=== PATIENT | female | born 1970 | race Caucasian/White ===

== ENCOUNTER 2020-08-31 18:52 | Emergency (ER) | payer OTHER, SELFPAY ==
[2020-08-31 19:13] LABS: COVID-19 Test Positive (Negative)
== END 2020-08-31 21:27 | disposition left against medical advice (07) ==
PROVIDERS: Emergency Provider Emergency Medicine
DX: U07.1 COVID-19 (principal)
CPT/HCPCS: 36415; 87635; 99283

== ENCOUNTER 2022-12-15 17:53 | Emergency (ER) | payer OTHER, SELFPAY ==
--- NOTE | ~2022-12-15 | US_ITS ---
EXAMINATION: US VENOUS ULTRASOUND WITH DOPPLER LOWER EXTREMITY, LEFT CLINICAL INFORMATION: Left calf pain COMPARISON: None available. TECHNIQUE: Ultrasound of the deep veins is performed from the hip to the calf with compression sonography and color and pulse Doppler assessment. Spectral analysis with color-flow imaging is performed. FINDINGS: There is normal venous compression and respiratory variation and augmented flow. The visualized common femoral vein, superficial femoral vein, profunda femoral vein, popliteal vein, and the trifurcation region shows no evidence of deep venous thrombosis. There is no significant popliteal fossa cyst. If the patient's symptoms persist, followup ultrasound in 5 days 7 days might be of value to exclude proximal propagation from a non-visualized calf vein. US/US venous duplex LE IMPRESSION: No DVT demonstrated in the left lower extremity.
--- NOTE | ~2022-12-15 | US_ITS ---
EXAMINATION: Left LOWER EXTREMITY arterial DUPLEX CLINICAL INFORMATION: blue toe left foot TECHNIQUE: Left lower extremity duplex Doppler techniques with wave form analysis and measurement of velocities in the common femoral, profunda femoral, superficial femoral, popliteal and tibial arteries. The study was performed only at rest. COMPARISON: None FINDINGS: a) AT REST: LEFT LEG: * Common femoral artery: 66 cm/s, Diastolic flow reversal: No. Monophasic * Superficial femoral artery (proximal, mid, distal): 11 cm/s distally. The proximal and mid SFA are occluded., Diastolic flow reversal: No, monophasic. There is a prominent collateral vessel in the thigh that likely reconstitutes the distal superficial femoral artery. The profunda is patent. Profunda peak systolic velocity measures 53 cm/s. Diastolic flow reversal: No. Monophasic. * Popliteal artery: 11 cm/s, Diastolic flow reversal: No. Monophasic. * Posterior tibial artery: 14 cm/s, Diastolic flow reversal: No. Monophasic. US/US arterial duplex LE IMPRESSION: The left proximal and mid superficial femoral artery is occluded. The distal superficial femoral artery reconstitutes from a collateral. There is decreased peak systolic velocity seen throughout the left lower extremity and abnormal monophasic flow.
[2022-12-15 18:49] VITALS: BP 178/98; PULSE 84; RESP 18; TEMP 36; O2SAT 98; BMI 21.8
--- NOTE | 2022-12-15 18:51 | ED.EXTPRO ---
HPI - Extremity Problem General Chief complaint: Extremity Injury, Lower Stated complaint: toes turned blue ? no circulation Time Seen by Provider: 12/15/22 21:23 Source: patient and family Mode of arrival: ambulatory History of Present Illness HPI Narrative: 52-year-old female, everyday smoker, has not seen a physician in over 2 years presents with complaints of numbness in her left foot as well as 1 week of discoloration (blue) of her left great toe and also describing mid left calf pain on walking that resolves with rest. Related Data Previous Rx's Medication Instructions Recorded hydrochlorothiazide 12.5 mg tablet 12.5 mg PO DAILY #60 tabs 12/16/22 Allergies Allergy/AdvReac Type Severity Reaction Status Date / Time No Known Allergies Allergy Verified 12/15/22 21:20 [No Known Allergies*] Review of Systems Review of Systems: Pertinent positives and negatives as stated in HPI PMFSH Past Medical History Source: nursing notes reviewed Medical History No known health problems Social History Social History Alcohol intake: current Alcohol intake frequency: a few times a week Alcohol type: beer Smoked in Last 30 Days: Yes Use of substances other than those prescribed or required for medical reasons: Yes Substance Use Type: Marijuana Substance Use Frequency: Daily Advance Directives: No Advance Directives Information Provided: Yes Physical Exam Vital Signs: Vital Signs: Last Vital Signs Temp 98.4 F 12/16/22 00:09 Pulse 83 12/16/22 00:09 Resp 17 12/16/22 00:09 BP 169/94 H 12/16/22 00:09 Pulse Ox 98 12/16/22 00:09 O2 Del Method Room Air 12/16/22 00:09 BMI result Body Mass Index 21.8 VITAL SIGNS: Reviewed. GENERAL: well nourished, in no acute distress. Appears older than stated age. HEAD: Normocephalic/atraumatic EYES: PERRLA, EOMI EARS: Ext canals without abnormality NOSE: Nares patent bilateral OROPHARYNX: no oral lesions noted, posterior pharynx clear NECK: Supple, no adenopathy LUNGS: Normal breath sounds. No adventitious sounds or accessory muscle use. SpO2<98> CARDIOVASCULAR: Regular rate and rhythm without noted murmurs ABDOMEN: Soft, non-tender, non-distended with bowel sounds. MUSCULOSKELETAL: No tenderness, deformities, or effusions noted on gross inspection. EXTREMITIES: No cyanosis, clubbing or edema. LLE: Cyanosis of left great toe, no palpable DP/PT, is cool when compared to the right, there is no pallor, sensation attenuated SKIN: Inspection of the skin reveals no rashes NEUROLOGIC: Alert and oriented x 4. Strength and sensation to light touch were grossly intact x 4. Course Course Course Narrative: RME - 52 yo female, active smoker presents to the ER for evaluation of intermittent blue discoloration and pain of the right great toe x1.5 weeks along with worsening left calf pain for 1 month. Medications Administered Discontinued Medications Generic Name Dose Route Start Last Admin Trade Name Freq PRN Reason Stop Dose Admin Amlodipine Besylate 10 mg 12/15/22 22:25 12/15/22 22:32 Amlodipine Besylate 10 Mg Tablet PO 12/15/22 22:26 10 mg ONCE ONE Administration Protocol Medical Decision Making Medical Decision Making [facility] Narrative: This is a 52-year-old female with history and clinical presentation, DDX: Claudication, ischemic changes to left great toe, suspect peripheral artery disease, uncontrolled hypertension. I reviewed all investigations and hematologic indices are negative for leukocytosis or left shift, there is no anemia but there is of macrocytic elevation of hemoglobin levels, this is likely secondary to underlying COPD that is not been diagnosed as of yet. There is no thrombocytopenia. Chemistry indices are grossly within normal limits without CHELI or electrolyte/liver enzyme abnormalities and high sensitivity troponin. Urinalysis is negative for elevated protein. Although venous duplex was negative for evidence to suggest an acute DVT, there is extensive arterial disease in the left lower extremity supporting patient's presenting symptoms. I contacted the vascular surgeon for recommendations regarding outpatient follow-up versus inpatient. [id number]: I discussed case with vascular surgeon, Dr. Shepherd, who states that he will see the patient without a primary care provider referral as long as we refer the patient to his office, he was provided with patient's name and date of and states that he will see the patient within the next week or so. He does recommend initiating a daily aspirin and blood pressure control. He is in possession of the arterial duplex findings, the report by me of claudication as well as the change in color of the left great toe in the fact that the foot is cool to touch but is not pale. Differential Diagnosis Differential Diagnoses: The differential diagnosis associated with the presentation includes Please see the discussion above Admission/Observation Consideration of admission/observation: Escalation of care including admission/observation considered Please see the discussion above Consult Healthcare Provider Management of the patient was discussed with: Dental Laboratory Assistant Please see the discussion above Lab Data MDM Lab Attestation statement: I reviewed the patient's lab results. Please see the discussion above 12/15/22 21:02 12/15/22 21:02 Labs: Lab Results 12/15/22 12/15/22 Range/Units 21:02 22:42 WBC 8.6 (4.8-10.8) X10*3/uL RBC 5.36 (4.20-5.50) X10*6/uL Hgb 18.7 H (12.0-16.0) g/dl Hct 53.8 H (37.0-47.0) % MCV 100.4 H (80.0-98.0) fL MCH 34.9 H (27.0-33.0) pg MCHC 34.8 (31.0-35.0) g/dl RDW 12.1 (11.0-16.0) % Plt Count 197 (160-400) X10*3/uL MPV 9.0 L (9.4-12.3) fL Immature Gran % (Auto) 0.2 (0.0-0.4) % Neut % (Auto) 60.5 (45-73) % Lymph % (Auto) 34.1 (20-40) % Calvert % (Auto) 4.5 (2-11) % Eos % (Auto) 0.2 (0-4) % Baso % (Auto) 0.5 (0-2) % Lymph # (Auto) 3.0 (1.2-4.9) X10*3/uL Calvert # (Auto) 0.4 (0.1-1.2) X10*3/uL Eos # (Auto) 0.0 (0.0-0.4) X10*3/uL Baso # (Auto) 0.0 (0.0-0.2) X10*3/uL Abs Immat Gran (auto) 0.02 (0.00-0.03) X10*3/uL Absolute Neuts (auto) 5.2 (2.0-8.3) x10*3/uL Absolute Nucleated RBC 0.000 (0.0-0.012) X10*3/uL Nucleated RBC % (auto) 0.0 (0.0-0.2) /100WBC Sodium 137 (135-145) mmol/L Potassium 3.5 (3.3-5.1) mmol/L Chloride 100 (96-108) mmol/L Carbon Dioxide 25 (22-29) mmol/L Anion Gap 16 (12-20) BUN 6 L (9-16) mg/dL Creatinine 0.77 (0.5-1.4) mg/dL Estim Creat Clear Calc 59.6 Estimated GFR > 60 Random Glucose 121 H (60-115) mg/dL Calcium 9.4 (8.4-10.2) mg/dL Magnesium 1.7 (1.6-2.6) mg/dL Total Bilirubin 0.9 (0.0-1.0) mg/dL Direct Bilirubin 0.3 (0.0-0.5) mg/dL AST 20 (5-31) U/L ALT 13 (0-31) U/L Alkaline Phosphatase 79 (39-117) U/L Troponin I High Sens < 2.7 (<3.5-17.0) ng/L Total Protein 7.5 (6.5-8.0) g/dL Albumin 4.3 (3.5-5.0) g/dL Urine Color Yellow Urine Appearance Clear Urine pH 5.5 (5.0-9.0) Ur Specific Pine <= 1.005 (1.005-1.025) Urine Protein Negative (Neg-Trace) mg/dL Urine Glucose (UA) Negative (Negative) mg/dL Urine Ketones Negative (Negative) mg/dL Urine Blood Small (1+) H (Negative) Urine Nitrite Negative (Negative) Ur Leukocyte Esterase Trace H (Negative) Urine RBC 0-2 (0-2) /HPF Urine WBC 0-5 (0-5) /HPF Ur Squamous Epith Cells 0-2 (0-2) /HPF Urine Bacteria None Seen (None Seen) Hyaline Casts 0-2 (0-2) /LPF Independent Interpretation I performed an independent interpretation of an: EKG Interpretation: Normal sinus rhythm, HR-73, no STEMI, AZ/QRS/QTC are within normal limits. Radiology Impression Discussion of test interpretation with radiology: I have reviewed the radiologist's reading. Radiologist Impression: Please see the discussion above Chronic Conditions Patient?s care impacted by: Hypertension and Other Everyday smoker, PAD Critical Care Time Critical Care Time Critical Care Time: Yes Total Critical Care Time: 30 Attestation: I personally attest to this time spent taking care of the patient. Discharge Plan Discharge Clinical Impression: Claudication in peripheral vascular disease, PAD (peripheral artery disease), Hypertension Patient Disposition: Home, Self-Care Instructions: Peripheral Vascular Disease (ED), Peripheral Artery Disease (ED), DASH Eating Plan (ED), Hypertension (ED) Additional Instructions: 1. You have been prescribed blood pressure medication and you should take this each day. 2. You should start taking 81 mg aspirin, daily, this is available [id number]. 3. You will need to call Dr. Shepherd for further evaluation of your left lower leg. Make this phone call tomorrow. His office will be expecting your call. 4. Please set up an appointment with a primary care provider at your earliest convenience. Return to the ER for any worsening symptoms. Prescriptions: New hydrochlorothiazide 12.5 mg tablet 12.5 mg PO DAILY Qty: 60 0RF Referrals: Edi Shepherd MD [Physician] -
[2022-12-15 20:53] VITALS: BP 218/124; PULSE 89; O2SAT 100
--- NOTE | 2022-12-15 20:57 | ECG_ITS ---
Test Reason : chest pain Blood Pressure : / mmHG Vent. Rate : 073 BPM Atrial Rate : 073 BPM P-R Int : 130 ms QRS Dur : 066 ms QT Int : 376 ms P-R-T Axes : 044 051 059 degrees QTc Int : 414 ms Normal sinus rhythm Septal infarct , age undetermined Abnormal ECG No previous ECGs available Referred By: Sravani Reynolds Electronically Signed By:PEPE CAMPOS
[2022-12-15 21:07] LABS: MANUAL DIFF FLAG NO
[2022-12-15 21:09] LABS: Basophils Percent Auto 0.5 % (0-2); Eosinophils Percent Auto 0.2 % (0-4); Hematocrit 53.8 % (37.0-47.0); Hemoglobin 18.7 g/dl (12.0-16.0); Imm Gran Abs Auto 0.02 X10*3/uL (0.00-0.03); Imm Gran Pct Auto 0.2 % (0.0-0.4); Lymphocytes Percent Auto 34.1 % (20-40); Mean Corpuscular HGB Conc 34.8 g/dl (31.0-35.0); Mean Corpuscular Hemoglobin 34.9 pg (27.0-33.0); Mean Corpuscular Volume 100.4 fL (80.0-98.0); Monocytes Absolute Auto 0.4 X10*3/uL (0.1-1.2); Monocytes Percent Auto 4.5 % (2-11); Neutrophils Absolute Auto 5.2 x10*3/uL (2.0-8.3); Neutrophils Percent Auto 60.5 % (45-73); Platelet Count 197 X10*3/uL (160-400); Red Blood Count 5.36 X10*6/uL (4.20-5.50); Red Cell Distribution Width 12.1 % (11.0-16.0); White Blood Count 8.6 X10*3/uL (4.8-10.8)
[2022-12-15 21:29] LABS: Alanine Aminotransferase 13 U/L (0-31); Albumin Level 4.3 g/dL (3.5-5.0); Alkaline Phosphatase 79 U/L (39-117); Anion Gap 16 (12-20); Aspartate Amino Transferase 20 U/L (5-31); Bilirubin Direct 0.3 mg/dL (0.0-0.5); Bilirubin Total 0.9 mg/dL (0.0-1.0); Blood Urea Nitrogen 6 mg/dL (9-16); Calcium 9.4 mg/dL (8.4-10.2); Carbon Dioxide 25 mmol/L (22-29); Chloride 100 mmol/L (96-108); Creatinine Clr Calc Pharmacy 59.6; Estimated Glomerular Filt Rate > 60; Glucose Random 121 mg/dL (60-115); Magnesium 1.7 mg/dL (1.6-2.6); Potassium 3.5 mmol/L (3.3-5.1); Sodium 137 mmol/L (135-145); Total Protein 7.5 g/dL (6.5-8.0)
[2022-12-15 21:36] LABS: Troponin-I High Sensitivity < 2.7 ng/L (<3.5-17.0)
[2022-12-15] MEDS: amLODIPine Besylate 10 MG TABLET PO (22:32)
[2022-12-15 22:33] VITALS: BP 191/100; PULSE 79; RESP 18; O2SAT 99
--- NOTE | 2022-12-15 22:36 | PC.NURSE ---
pt a&ox4, hypertensive, other vss, pt reporting 9/10 left calf/foot pain. medicated per MAY. no new orders at this time.
[2022-12-15 22:50] LABS: Appearance Urine Clear; Color Urine Yellow; Glucose Urine UA Negative (Negative); Leukocyte Esterase Urine Trace (Negative); Nitrite Urine Negative (Negative); PH 5.5 (5.0-9.0); Specific Gravity - Urine <= 1.005 (1.005-1.025); UMIC TRIGGER UACC YES; Urine Blood Small (1+) (Negative); Urine Ketones Negative (Negative); Urine Protein Negative (Neg-Trace)
[2022-12-15 23:03] LABS: Bacteria Urine None Seen (None Seen); Hyaline Casts Urine 0-2 /LPF (0-2); RBC Urine 0-2 /HPF (0-2); Squamous Epithelial Cell Urine 0-2 /HPF (0-2); WBC Urine 0-5 /HPF (0-5)
[2022-12-16 00:09] VITALS: BP 169/94; PULSE 83; RESP 17; TEMP 36.9; O2SAT 98
== END 2022-12-16 01:19 | disposition home or self-care (01) ==
PROVIDERS: Physician Assistant; Emergency Provider Student in an Organized Health Care Education/Training Program
DX: I73.9 Peripheral vascular disease, unspecified (principal); I10 Essential (primary) hypertension; R60.0 Localized edema; R07.89 Other chest pain; Z79.899 Other long term (current) drug therapy
CPT/HCPCS: 36415; 80048; 80076; 81001; 83735; 84484; 85025; 93005; 93926; 93971; 99284

== ENCOUNTER 2022-12-18 13:51 | Outpatient (AMB) | payer OTHER, SELFPAY ==
--- NOTE | 2022-12-18 13:53 | MHC.OFFVIS ---
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 She was noted discoloration of bilateral lower extremities. She presented to the emergency room had had noninvasive arterial testing. At that time it was determined that she had motor and sensation intact and appear to be more chronic in nature. She was started on aspirin and subsequently discharged. She now presents to us for vascular evaluation. [facility] Medical History No known health problems Social History (Updated 12/18/22 @ 14:03 by SPENCER Avalos) Alcohol intake: current Alcohol intake frequency: a few times a week Alcohol type: beer Patient Tobacco Use Status: Current everyday Tobacco user Cigarettes Per Day: 6 Substance Use Type: Marijuana Review of Systems Const All systems reviewed & are unremarkable except as noted in HPI and below Reports no additional complaints ENT Reports Normal hearing present Card Denies chest pain, Denies chest pain at rest, Denies chest pain with activity and Denies pedal edema Resp Denies cough GI Denies abdominal pain Musc Denies abnormal gait, Denies muscle cramps and Denies radiating pain into limb Skin/Breast Denies skin ulcer and Denies wounds Neuro Reports Normal hearing present and Denies abnormal gait Psych Reports no additional complaints Physical Exam Const General: cooperative, healthy appearing and comfortable Orientation/consciousness: oriented to person, oriented to place and oriented to time HEENT Head: Yes normal to inspection Neck Neck: Yes normal visual inspection Carotids: no bruits Chest Chest palpation & inspection: normal inspection of the chest Resp Effort & Inspection: normal respiratory effort and able to speak in complete sentences Auscultation: clear to auscultation bilaterally, no crackles, no rales, no rhonchi and no wheezes Cardio Other: Bilateral DP signals Rate: regular rate Rhythm: regular rhythm Heart sounds: S1 normal heart sound present and S2 normal heart sound present Bruits: no carotid bruits Peripheral pulses: Peripheral pulses 2+ throughout GI Inspection: Yes normal to inspection Skin Wounds: no wounds Hair: normal Neuro General: oriented to person, oriented to place and oriented to time Cranial nerves: Yes CN's II-XII intact bilaterally and Yes Normal hearing present Cognition (Neuro): normal cognition Motor exam (neuro): 5/5 motor strength present throughout Extrem Other: venous exam: No significant superficial varicosities or spider telangiectasias, minimal edema General: No clubbing, No cyanosis and No edema Psych Appearance: grossly normal Mental Status: mental status grossly normal Speech and movement: Normal speech and movement present Results Reviewed Results Reviewed: Arterial testing of the left lower extremity performed 12/15/2022 demonstrates left side SFA occlusion. Written report and images were reviewed. Assessment & Plan Assessment & Plan (1) PAD (peripheral artery disease): Code(s): I73.9 - Peripheral vascular disease, unspecified Plan: Patient notes leg pain when walking distances. I have discussed the pathophysiology of peripheral vascular disease with the patient. I have also discussed risk factor modification. I have reviewed the patient's arterial testing which reveals left SFA disease. the patient would benefit from a left leg endovascular peripheral angiogram with possible angioplasty, stent, and/or atherectomy. This has been discussed in detail with the patient along with risks, benefits, and complications. This includes but is not limited to bleeding, infection, heart attack, need for emergent surgical repair, limb ischemia, blood vessel damage, bleeding, puncture, kidney injury, bruising, allergic reaction, and skin reaction. The patient demonstrates a clear understanding. We will schedule for the next appropriate time. Thank you for allowing us to assist in this patient's care. Coding Level of Care Code New Pt Level 4 (91258) Diagnoses PAD (peripheral artery disease) I73.9
== END 2022-12-18 14:36 | disposition home or self-care (01) ==
PROVIDERS: Visit Provider Surgery Vascular Surgery
DX: I73.9 Peripheral vascular disease, unspecified (principal)
CPT/HCPCS: 99204

== ENCOUNTER → 2022-12-18 13:51 | Outpatient (BNVA) | payer OTHER, SELFPAY | PROVIDERS: Visit Provider Surgery Vascular Surgery ==

== ENCOUNTER 2022-12-24 06:05 | Day surgery (SDC) | payer OTHER, SELFPAY ==
[2022-12-24] VITALS (10 sets, daily range): BP systolic 126–150; BP diastolic 71–89; PULSE 65–89; RESP 16–18; TEMP 36–36.4; O2SAT 97–99; BMI 21.8
[2022-12-24] MEDS: 0.9 % Sodium Chloride 1,000 ML 100 ML IVCONT (06:50)
[2022-12-24 06:51] LABS: MANUAL DIFF FLAG NO
[2022-12-24 06:53] LABS: Basophils Absolute Auto 0.1 X10*3/uL (0.0-0.2); Basophils Percent Auto 0.8 % (0-2); Eosinophils Percent Auto 0.4 % (0-4); Hematocrit 51.7 % (37.0-47.0); Hemoglobin 18.9 g/dl (12.0-16.0); Imm Gran Abs Auto 0.04 X10*3/uL (0.00-0.03); Imm Gran Pct Auto 0.5 % (0.0-0.4); Lymphocytes Absolute Auto 2.5 X10*3/uL (1.2-4.9); Lymphocytes Percent Auto 32.1 % (20-40); Mean Corpuscular HGB Conc 36.6 g/dl (31.0-35.0); Mean Corpuscular Hemoglobin 35.2 pg (27.0-33.0); Mean Corpuscular Volume 96.3 fL (80.0-98.0); Mean Platelet Volume 9.3 fL (9.4-12.3); Monocytes Absolute Auto 0.5 X10*3/uL (0.1-1.2); Monocytes Percent Auto 6.3 % (2-11); Neutrophils Absolute Auto 4.7 x10*3/uL (2.0-8.3); Neutrophils Percent Auto 59.9 % (45-73); Platelet Count 228 X10*3/uL (160-400); Red Blood Count 5.37 X10*6/uL (4.20-5.50); Red Cell Distribution Width 11.6 % (11.0-16.0); White Blood Count 7.9 X10*3/uL (4.8-10.8)
[2022-12-24 07:14] LABS: Blood Urea Nitrogen 7 mg/dL (9-16); Creatinine Clr Calc Pharmacy 58.8; Estimated Glomerular Filt Rate > 60
--- NOTE | 2022-12-24 09:36 | W.PM.OPN ---
Operative Note Operative Note Date of Service: 12/24/22 Narrative: Angiogram report from [facility] Preoperative diagnosis: Atherosclerosis of left lower extremity with nonhealing ulcer Postoperative diagnosis: Same Procedure: 1. Ultrasound-guided right common femoral access 2. Aortogram with bilateral lower extremity runoff 3. Right external iliac stent Surgeon:Edi Shepherd M.D., FACS, RPVI Clay Transporter:None Anesthesia: Local with moderate conscious sedation. Total intraservice moderate sedation time was 52 minutes. I monitored the patient's level of consciousness and physiologic status continuously throughout the procedure. Specimens:none Drains:none Estimated blood loss: Less than 10 ml Implant: Medtronic visi pro 6 x 27 Indications: Very pleasant 52-year-old female who was seen in the emergency room for painful lower extremities was found to have significant peripheral vascular disease. She now presents for endovascular intervention The patient has signed the informed consent after reviewing risks, complications, benefits, and alternatives previously discussed with the patient. The patient was given the opportunity to ask any additional questions or voice any concerns. All questions were answered to the patient's satisfaction. Procedure in detail: Patient was brought to the angiography suite prior to which a time-out was called for patient identification and site verification. Bilateral groins were prepped and draped in the standard surgical fashion. Under ultrasound guidance right common femoral was punctured with micro puncture needle and wire. Subsequently a precision 4 Vincentian sheath was then placed. [employer]comson wire was advanced to the level of the aorta. 4 Vincentian Flush catheter was brought up and parked at the level of the renal arteries. Aortogram was then undertaken. Catheter was brought down to the level of the iliac bifurcation. Iliacs were subsequently imaged. Catheter was then brought in up and over to the left side SFA. Runoff study was then undertaken. There was a total occlusion recognize in no intervention on the left side was indicated. We removed the catheter and through the sheath we did a right lower extremity runoff study. It was recognized that the external iliac had a high-grade stenosis at that time. We exchanged out for a short 7 Vincentian sheath. At this time we administered 3000 units of systemic heparin. After 5 minutes of circulation time glidewire Advantage was then advanced. We 1st plasty this area with a 6 x 30 balloon. We then followed this up as it had residual stenosis with a 6 x 27 balloon expandable stent. Once this was accomplished completion angiogram was then undertaken. Patient tolerated the procedure well returned to recovery with stable vitals. Interpretation of films: 1. Ultrasound demonstrates appropriate femoral puncture. Image of which was saved. 2. Aortogram demonstrates appropriate caliber aorta. Minimal disease. Appropriate take-off of the renals. 3. Iliac images demonstrate what appears to be high-grade stenosis on the left side there was good flow through down to the common femoral right-side had flow down to the external iliac. There was high-grade stenosis at the external iliac. 4. Left Leg Common femoral artery: No significant disease Profundus Femoris: Occluded at origin and reconstitutes via collateral Superficial femoral artery: Total occlusion and reconstitutes at the above knee popliteal Popliteal artery (p1,p2,p3): No significant disease Anterior tibial artery: Present but diminutive Peroneal artery: Present but diminutive Posterior tibial artery: Present but diminutive Dorsalis pedis/plantar arch: Incomplete 5. Right Leg Common femoral artery: No significant disease Profundus Femoris: Occluded at origin and reconstitutes via collateral Superficial femoral artery: Total occlusion and reconstitutes at the above knee popliteal Popliteal artery (p1,p2,p3): No significant disease Anterior tibial artery: Present but diminutive Peroneal artery: Present but diminutive Posterior tibial artery: Occluded Dorsalis pedis/plantar arch: Incomplete Conclusion: 1. Successful stent of right external iliac 2. Anticoagulation status: Aspirin and Plavix for 6 months This note is constructed using voice recognition software. While every effort has been made to ensure accuracy, medical transcription editor errors may have been included. Thank you for allowing me to participate in the care of your patient. Yours sincerely, Edi Shepherd MD, FACS, R.P.V.I.
[2022-12-24] MEDS: Clopidogrel Bisulfate 300 MG TABLET PO (10:11)
== END 2022-12-24 12:00 | disposition home or self-care (01) ==
PROVIDERS: Visit Provider Surgery Vascular Surgery
DX: I70.248 Atherosclerosis of native arteries of left leg with ulceration of other part of lower leg (principal); L97.829 Non-pressure chronic ulcer of other part of left lower leg with unspecified severity; F17.210 Nicotine dependence, cigarettes, uncomplicated; Z79.82 Long term (current) use of aspirin; Z79.01 Long term (current) use of anticoagulants; F12.90 Cannabis use, unspecified, uncomplicated
CPT/HCPCS: 36415; 37221; 76937; 82565; 84520; 85025; 99152; 99153; C1725; C1876; C1887; C1894; J1643; J2250; J3010; Q9967

== ENCOUNTER → 2022-12-24 06:05 | Outpatient (BNV) | payer OTHER, SELFPAY | PROVIDERS: Visit Provider Surgery Vascular Surgery | DX: I70.239 Atherosclerosis of native arteries of right leg with ulceration of unspecified site (principal); I70.249 Atherosclerosis of native arteries of left leg with ulceration of unspecified site | CPT/HCPCS: 36217; 37221; 75625; 75716; 76937 ==

== ENCOUNTER 2023-01-01 15:14 | Outpatient (AMB) | payer OTHER, SELFPAY ==
--- NOTE | 2023-01-01 15:14 | MHC.OFFVIS ---
Intake Intake Visit Reasons: Follow Up Angio Intake Note: follow up Angiogram 12/24/22 pt states she is doing well after the angio but her left leg is in alot of pain Accompanied by: Daughter Allergies No Known Allergies [No Known Allergies*] Allergy (Verified 01/01/23 15:20) HPI Follow Up Angio HPI Details Complex 52-year-old female presents for follow-up evaluation status post angiogram. She had undergone left lower extremity diagnostic angiogram. Her are claudication continues to progress. She reports she can barely walk about 100 yd or so. She continues to smoke what I suspect is nearly 2 packs per day. She is now for postprocedure follow-up. [facility] Medical History (Updated 01/02/23 @ 13:43 by Edi Shepherd MD) PAD (peripheral artery disease) No known health problems Social History Alcohol intake: current Alcohol intake frequency: a few times a week Alcohol type: beer Patient Tobacco Use Status: Current someday Tobacco user Tobacco use type: Cigarette Cigarettes Per Day: 6 Substance Use Type: Marijuana Review of Systems Const All systems reviewed & are unremarkable except as noted in HPI and below Reports no additional complaints ENT Reports Normal hearing present Card Denies chest pain, Denies chest pain at rest, Denies chest pain with activity and Denies pedal edema Resp Denies cough GI Denies abdominal pain Musc Denies abnormal gait, Denies muscle cramps and Denies radiating pain into limb Skin/Breast Denies skin ulcer and Denies wounds Neuro Reports Normal hearing present and Denies abnormal gait Psych Reports no additional complaints Physical Exam Const General: cooperative, healthy appearing and comfortable Orientation/consciousness: oriented to person, oriented to place and oriented to time HEENT Head: Yes normal to inspection Neck Neck: Yes normal visual inspection Carotids: no bruits Chest Chest palpation & inspection: normal inspection of the chest Resp Effort & Inspection: normal respiratory effort and able to speak in complete sentences Auscultation: clear to auscultation bilaterally, no crackles, no rales, no rhonchi and no wheezes Cardio Other: Bilateral DP signals Rate: regular rate Rhythm: regular rhythm Heart sounds: S1 normal heart sound present and S2 normal heart sound present Bruits: no carotid bruits GI Inspection: Yes normal to inspection Skin Wounds: no wounds Hair: normal Neuro General: oriented to person, oriented to place and oriented to time Cranial nerves: Yes CN's II-XII intact bilaterally and Yes Normal hearing present Cognition (Neuro): normal cognition Motor exam (neuro): 5/5 motor strength present throughout Extrem Other: venous exam: No significant superficial varicosities or spider telangiectasias, minimal edema General: No clubbing, No cyanosis and No edema Psych Appearance: grossly normal Mental Status: mental status grossly normal Speech and movement: Normal speech and movement present Results Reviewed Results Reviewed: CT angiogram was rereviewed from 12/24/2022 . Images were personally reviewed Assessment & Plan Assessment & Plan (1) PAD (peripheral artery disease): Code(s): I73.9 - Peripheral vascular disease, unspecified Plan: In short patient has severe activity limiting claudication. She will require operative intervention. She does have primary care visit scheduled for 01/08/2023. In addition due to her history she will need cardiac risk stratification. She is currently being maintained on aspirin and Plavix. She was given hydrochlorothiazide from the emergency room. In addition ideally she should have be on a statin as well. She will require left femoral endarterectomy with left iliac stent placement. Risks benefits complications of the operation were discussed in detail with the patient she understood and consented. This will be scheduled as soon as possible. Thank you for allowing us to assist in her care (2) PAD (peripheral artery disease): Code(s): I73.9 - Peripheral vascular disease, unspecified Coding Level of Care Code Est Pt Level 4 (20945) Diagnoses PAD (peripheral artery disease) I73.9
== END 2023-01-01 15:29 | disposition home or self-care (01) ==
PROVIDERS: Visit Provider Surgery Vascular Surgery
DX: I73.9 Peripheral vascular disease, unspecified (principal)
CPT/HCPCS: 99214

== ENCOUNTER → 2023-01-01 15:14 | Outpatient (BNVA) | payer OTHER, SELFPAY | PROVIDERS: Visit Provider Surgery Vascular Surgery ==

== ENCOUNTER 2023-01-08 10:14 | Outpatient (AMB) | payer OTHER, SELFPAY ==
--- NOTE | 2023-01-08 10:16 | MHC.PC.OV ---
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 pt was [place] [facility] [place]. Allergies No Known Allergies [No Known Allergies*] Allergy (Verified 01/08/23 10:25) Medication List - Last Reconciled 01/08/23 by LINDA Pavon aspirin (Adult Aspirin Regimen) 81 mg PO DAILY clopidogrel (Plavix) 75 mg PO DAILY hydrochlorothiazide 12.5 mg PO DAILY Tobacco use date assessed: 01/08/23 Dental Screening Dental Screen Date: 01/08/23 Did you have a dental visit in the last 12 months?: No Did you have a dental problem in the last 6 months where you did not have access to dental care?: No HPI HPI Comments History of Present Illness Details 52-year-old female new patient presents today to establish care. Past medical history significant for hypertension and peripheral artery disease. Patient currently following with vascular surgery Dr. Shepherd status post left leg angiogram with stent. Patient currently on aspirin and Plavix recommended x6 months patient reports has upcoming appointment for right leg on 01/19/23. Patient reports difficulty sleeping after she has cut down on drinking. Patient advised to follow good sleep hygiene avoid watching TV or using other electronic devices can try [id number] melatonin as needed for sleep. [facility] Medical History (Updated 01/08/23 @ 10:26 by LINDA Pavon) Hypertension PAD (peripheral artery disease) No known health problems Family History (Updated 01/08/23 @ 10:30 by LINDA Pavon) Father Lung cancer Mother Lung cancer Brother No problems noted. Sister No problems noted. Social History (Updated 01/08/23 @ 10:29 by LINDA Pavon) Housing: Apartment Alcohol intake: current Alcohol intake frequency: a few times a week Alcohol type: beer Patient Tobacco Use Status: Current everyday Tobacco user Tobacco use type: Cigarette Cigarettes Per Day: 10 Substance Use Type: Marijuana service: No Current occupational status: disabled Cognitive needs: No Hearing needs: No Vision needs: No Questionnaire PHQ-9 Over the last 2 weeks, how often have you been bothered by any of the following problems? 1. Little interest or pleasure in doing things: not at all 2. Feeling down, depressed, or hopeless: not at all 3. Trouble falling or staying asleep, or sleeping too much: not at all 4. Feeling tired or having little energy: not at all 5. Poor appetite or overeating: not at all 6. Feeling bad about yourself - or that you are a failure or have let yourself or your family down: not at all 7. Trouble concentrating on things, such as reading the newspaper or watching television: not at all 8. Moving or speaking so slowly that other people could have noticed. Or the opposite - being so fidgety or restless that you have been moving around a lot more than usual: not at all 9. Thoughts that you would be better off or of hurting yourself in some way: not at all Total score: 0 Depression Screening Interpretation: Negative Depression Screening Done: Yes [id number] - PHQ-9 Billing: Yes Source: Developed by Drs. Isrrael Key, Lizbeth Mckeon, Óscar Valdovinos and colleagues, with an educational dominick from [employer].. AUDIT C Alcohol Use Questionnaire (AUDIT-C) 1. How often do you have a drink containing alcohol?: 2-3 times a week 2. How many drinks containing alcohol do you have on a typical day when you are drinking?: 5 or 6 3. How often do you have six or more drinks on one occasion?: Never Total Score: 5 QUENTIN-7 AMB Questionnaire QUENTIN-7 Date QUENTIN - 7 assessed: 01/08/23 Feeling nervous, anxious, or on edge: 0 = Not at all Not being able to stop or control worryin = Not at all Worrying too much about different things: 0 = Not at all Trouble relaxin = Not at all Being so restless that it is hard to sit still: 0 = Not at all Becoming easily annoyed or irritable: 0 = Not at all Feeling afraid as if something awful might happen: 0 = Not at all Total QUENTIN-7 score (0-4 normal; 5-9 mild; 10-14 moderate; 15-21 severe): 0 Source: Developed by Drs. Isrrael Key, Lizbeth Mckeon, Óscar Valdovinos and colleagues, with an educational dominick from [employer].. QUENTIN-7 Assessment Billing QUENTIN-7 Assessment Tool: QUENTIN-7 Assessment 98838 Review of Systems Const Denies chills, Denies fatigue, Denies fever(s) and Denies poor appetite Eyes Denies no additional complaints ENT Reports Normal hearing present Card Denies chest pain, Denies syncope, Denies rapid heart rate and Denies dyspnea Resp Denies cough and Denies dyspnea GI Denies change in stool character, Denies constipation, Denies diarrhea, Denies nausea and Denies vomiting Denies urinary frequency, Denies dysuria and Denies urinary urgency Neuro Reports Normal hearing present, Denies confusion and Denies syncope Psych Denies confusion Endo Denies fatigue Physical exam (Primary Care) Vital Signs: Last Vital Signs Pulse 79 01/08/23 10:17 BP 124/82 01/08/23 10:17 Pulse Ox 100 01/08/23 10:17 Oxygen Delivery Method Room Air 01/08/23 10:17 BMI result Body Mass Index 21.4 Tobacco/Smoking Status: Tobacco use Status Tobacco use date assessed 01/08/23 01/08/23 10:22 Patient Tobacco Use Status Current everyday Tobacco 01/08/23 10:29 Tobacco use type Cigarette 01/08/23 10:29 PHQ-9: PHQ-9 Score PHQ-9: Total score 0 01/08/23 10:31 Depression Screening Interpretation: Negative Const General: No confusion Orientation/consciousness: No confusion HENMT Head: Yes normocephalic and Yes atraumatic Eyes Conjunctivae: conjunctivae normal Chest Chest palpation & inspection: normal inspection of the chest Resp Effort & Inspection: normal respiratory effort Auscultation: clear to auscultation bilaterally, no crackles, no rhonchi and no wheezes Cardio Rate: regular rate Rhythm: regular rhythm Heart sounds: S1 normal heart sound present and S2 normal heart sound present Peripheral pulses: dorsalis pedis present GI Inspection: Yes normal to inspection Neuro General: No confusion Cranial nerves: Yes Normal hearing present Extrem General: No edema Right lower extremity: foot Details: normal capillary refill, normal to inspection and no edema Left lower extremity: foot Details: normal capillary refill, no edema and other (Patient has reddish discoloration to all toes. ) Assessment and Plan Assessment & Plan (1) Hypertension: Code(s): I10 - Essential (primary) hypertension Plan: Continue on hydrochlorothiazide. Follow low-salt diet exercise. Blood pressure goal less than 140/90. (2) PAD (peripheral artery disease): Code(s): I73.9 - Peripheral vascular disease, unspecified Plan: Continue to follow with vascular surgery. Continue on aspirin and Plavix Orders: Orders Complete Blood Count Auto Diff Today Z13.0 - Encounter for screening for diseases of the blood and blood-forming organs and certain disorders involving the immune mechanism Comprehensive Ong. Panel Fast Today I10 - Essential (primary) hypertension, I73.9 - Peripheral vascular disease, unspecified TSH reflex Free T4 Today Z13.29 - Encounter for screening for other suspected endocrine disorder Lipid Panel Today Z13.220 - Encounter for screening for lipoid disorders Vitamin D 25-OH Total Today Z13.21 - Encounter for screening for nutritional disorder Coding Level of Care Code New Pt Level 3 (90657) Diagnoses Hypertension I10 PAD (peripheral artery disease) I73.9 Additional Codes QUENTIN-7 Assessment Billing - QUENTIN-7 Assessment Tool: QUENTIN-7 Assessment [id number] ([id number])
[2023-01-08 10:17] VITALS: BP 124/82; PULSE 79; O2SAT 100; BMI 21.4
== END 2023-01-08 10:42 | disposition home or self-care (01) ==
PROVIDERS: Visit Provider Nurse Practitioner Family
DX: I10 Essential (primary) hypertension (principal); I73.9 Peripheral vascular disease, unspecified
CPT/HCPCS: 99203

== ENCOUNTER 2023-01-21 13:09 | Outpatient (AMB) | payer OTHER, SELFPAY ==
[2023-01-21 13:10] VITALS: BP 120/70; PULSE 97; BMI 19.1
--- NOTE | 2023-01-21 13:10 | MHC.OFFVIS ---
Intake Vital Signs 01/21/23 13:10 Height 4 ft 11 in Weight 94 lb 12.78 oz BMI 19.1 BP 120/70 Blood Pressure Location Lt brachial Position Sitting Pulse 97 Intake Visit Reasons: Preop- Dr. 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 She is a 52-year-old female with symptoms of significant limiting claudication predominantly left lower extremity. She recently underwent right external iliac stenting for significant right external iliac artery stenosis along with significant stenosis in the left iliac artery as well as left femoral artery for which she needs to undergo left femoral endarterectomy along with left iliac artery stenting. Patient is a long-term smoker and used to smoke 2 packs a day but now is now down to 6 cigarettes a day. She is very motivated in stopping smoking. 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 She is currently on dual antiplatelet therapy due to recent stenting and hydrochlorothiazide therapy for blood pressure. She is not started on statin therapy as yet. She has not had a lipid panel done. She does not exercise routinely and has limited exercise capacity now. She denies any chest pain or shortness of breath. She comes for cardiology evaluation prior to intermediate to high risk noncardiac surgery. [facility] Medical History Hypertension PAD (peripheral artery disease) No known health problems Family History Father Lung cancer Mother Lung cancer Brother No problems noted. Sister No problems noted. Social History Housing: Apartment Alcohol intake: current Alcohol intake frequency: a few times a week Alcohol type: beer Patient Tobacco Use Status: Current everyday Tobacco user Tobacco use type: Cigarette Cigarettes Per Day: 10 Substance Use Type: Marijuana service: No Current occupational status: disabled Cognitive needs: No Hearing needs: No Vision needs: No Review of Systems Const Denies chills, Denies daytime sleepiness, Denies fatigue, Denies fever(s), Denies frequent falls, Denies poor appetite, Denies snoring, Denies stops breathing during sleep, Denies weakness, Denies weight gain and Denies weight loss Eyes Denies loss of vision ENT Denies dizziness and Denies hearing loss Card Denies chest pain, Denies claudication, Denies leg edema, Denies lightheadedness, Denies palpitations, Denies dyspnea, Denies dyspnea on exertion and Denies orthopnea Resp Denies cough, Denies excessive phlegm production, Denies dyspnea, Denies dyspnea on exertion, Denies snoring and Denies wheezing GI Denies abdominal pain, Denies hematochezia, Denies change in bowel habits, Denies nausea and Denies vomiting Denies urinary frequency and Denies dysuria Musc Denies arthralgias, Denies muscle weakness, Denies numbness and Denies other (frequent falls) Skin/Breast Denies nail changes and Denies rash Neuro Denies Abnormal speech present, Denies dizziness, Denies frequent falls, Denies loss of vision, Denies memory loss, Denies numbness and Denies weakness Psych Denies depression and Denies memory loss Endo Denies fatigue and Denies palpitations Surinder/Lymph Reports easy bruising and Reports other (anemia) Aller/Immun Denies wheezing Physical Exam Vital Signs: Last Vital Signs Pulse 97 01/21/23 13:10 BP 120/70 01/21/23 13:10 BMI result Body Mass Index 19.1 Const General: cooperative, comfortable, no acute distress, alert, awake and tired appearing Nutritional Appearance: thin Orientation/consciousness: patient oriented x3 Limitations: wheelchair HEENT Head: Yes normocephalic and Yes atraumatic Neck Neck: Yes trachea midline, Yes supple and Yes no JVD Resp Effort & Inspection: normal respiratory effort Auscultation: clear to auscultation bilaterally and diminished lung sounds Cardio Jugular venous distension: no JVD Palpation: normal PMI Rate: regular rate Rhythm: regular rhythm Heart sounds: S1 normal heart sound present, S2 normal heart sound present, no click, no gallops, no murmurs and no rubs GI Auscultation: normal bowel sounds Skin General skin exam: no rashes or lesions noted Neuro General: patient oriented x3 and no focal motor deficits Speech: No Abnormal speech present Extrem General: Yes no clubbing, cyanosis or edema Office Procedures EKG Details: EKG shows normal sinus rhythm with diffuse ST T wave changes in inferior and anterolateral change which could represent ischemia [id number], Complete Assessment & Plan Assessment & Plan (1) Preoperative cardiovascular examination: Code(s): Z01.810 - Encounter for preprocedural cardiovascular examination Plan: Preoperative cardiovascular risk stratification in middle-aged woman with significant peripheral vascular disease with very limited exercise capacity to undergo intermediate to high risk surgery with abnormal EKG at baseline. She is at high risk for underlying significant obstructive coronary artery disease and myocardial ischemia. This needs to be determined for further risk stratification and risk stratification for probably performing surgery at a tertiary care center if need be. This was discussed with her. She is currently on dual antiplatelet therapy which should be continued. A blood pressure is optimized. I would also consider high-intensity statin therapy such as Lipitor 80 mg daily and will take the liberty to prescribe the same. Advised to follow-up lipid panel near future. Complete smoking cessation advised. Given that she has significant limiting symptoms and probably symptoms the rest would expedite a stress test over the next 2 days, will be a vasodilating myocardial perfusion imaging as well as an echocardiogram. Further treatment based on the finding of this test. Will follow up in the clinic if need be. Coding Level of Care Code New Pt Level 4 (25852) Diagnoses Preoperative cardiovascular examination Z01.810 CPT Codes EKG - CPT: 69901-[id number], Complete ([id number])
== END 2023-01-21 13:30 | disposition home or self-care (01) ==
PROVIDERS: Visit Provider Internal Medicine Cardiovascular Disease
DX: Z01.810 Encounter for preprocedural cardiovascular examination (principal)
CPT/HCPCS: 93010; 99204

== ENCOUNTER → 2023-01-21 13:09 | Outpatient (BNVA) | payer OTHER, SELFPAY | PROVIDERS: Visit Provider Internal Medicine Cardiovascular Disease | DX: Z01.810 Encounter for preprocedural cardiovascular examination (principal) | CPT/HCPCS: 93005 ==

== ENCOUNTER → 2023-01-26 10:13 | Outpatient (REF) | payer OTHER, SELFPAY ==
--- NOTE | 2023-01-26 10:16 | CA_ITS ---
Transthoracic Echocardiogram Patient (Last, First, Middle): Faiza Valladares Marie Gender: Female Date of : 1970 Age: 52 Procedure Date: 01/26/2023 Procedure Type: Transthoracic Echocardiogram Location: OP Height: 149.86 cm Weight: 45.36 kg BSA: 1.37 m2 Heart Rate: 98 bpm BP: 109 / 86 mmHg Child Development Associate Teacher: SPEEDY Referring MD: Mehran Henriquez MD Symptoms: Z01.810 - Encounter for preprocedural cardiovascular examination Study Quality: Technically Difficult/w Contrast ECG Rhythm: Sinus Conclusions: - The left ventricular systolic function is normal. The calculated ejection fraction is 61% by biplane method. - No obvious valvular pathology seen on this study. Findings Procedure Information Contrast agent, definity, is being given per protocol without apparent complications. Left Ventricle Normal left ventricular cavity size. The left ventricular systolic function is normal. The calculated ejection fraction is 61% by biplane method. There is no evidence of regional wall motion abnormalities. Evidence suggests grade I (mild) diastolic dysfunction. There is mild septal and mild basal asymmetric hypertrophy. Right Ventricle The right ventricle was not well visualized. Atria Both atria are normal in size. Aortic Valve The aortic valve structure and function is likely normal. There is mild calcification of the aortic valve. There is no aortic valve stenosis. There is no aortic valve regurgitation. Mitral Valve The mitral valve appears normal. There is no mitral valve regurgitation. There is no mitral valve stenosis. Pulmonic Valve The pulmonic valve is likely normal. Tricuspid Valve There is trace tricuspid valve regurgitation. There is no evidence of pulmonary hypertension. Great Vessels The asc aorta is normal in size. Venous The inferior vena cava is normal in size and collapses greater than 50% with inspiration. Pericardium/Pleural There is no evidence of pericardial effusion. Prior Study Comparison No prior study available for comparison. Recommendations, Care & Conclusions No obvious valvular pathology seen on this study. Measurements 2D Linear Measurements IVSd: 1.20 0.6-0.9/0.6-1.0 cm LVIDd: 3.18 3.9-5.3/4.2-5.9 cm LVIDd Index: 2.32 2.4-3.2/2.2-3.1 cm/m2 LVIDs: 2.62 2.0-3.6 cm LVPWd: 0.89 0.7-1.1 cm LA Diam: 2.70 2.7-3.8/3.0-4.0 cm LAIDs Index: 1.97 1.5-2.3 cm/m2 LV Mass: 119.03 67-162/88-224 g LV Mass Index: 86.89 43-95/49-115 g/m2 LVOT Diam: 1.70 3.0+(-)1.3 cm 2D Systolic Function EF 4C: 61.00 >55% EF 2C: 64.60 >55% EF BiP: 61.20 >55% Mitral Valve MV Pk E: 0.53 MV PK A: 0.72 MV Decel Time: 306.00 E/A: 0.70 E'Lateral: 5.66 E'Medial: 4.46 E/E' Med: 11.80 E/E' Lat: 9.30 PHT: 90.00 MVA PHT: 2.44 Decel Rolette: 1.72 Aortic Valve AoV Pk Ronald: 1.05 AoV Mn Ronald: 0.71 AoV VTI: 0.16 AoV Pk Grad: 4.00 Aov Mn Grad: 2.00 FAUZIA Cont.VTI: 1.28 LVOT LVOT Pk Ronald: 0.54 LVOT Mn Ronald: 0.40 LVOT VTI: 0.09 LVOT Pk Grad: 1.00 LVOT Mn Grad: 1.00 LVOT Diam: 1.70 LVOT Area: 2.27 Diastolic Function MV Pk E: 0.53 MV Pk A: 0.72 E/A: 0.70 E'Medial: 4.46 E/E' Med: 11.80 E' Laterial: 5.66 E/E' Lat: 9.30 Right Ventricle TVS' Ronald: 7.78 Tricuspid Valve TR Pk Ronald: 2.09 TR Pk Grad: 17.00 RA Press: 3.00 RVSP: 20.00 Great Vessels Aorta Sinus of Valsalva: 2.90 2.0-3.5 cm Ao Asc: 2.80 2.1-3.4 cm Pulmonary Valve PV Pk Ronald: 0.81 Peak PV Grad: 3.00 Updated in Other Vendor System with Status of Final Jair Powell MD electronically signed on 01/26/2023 12:35:26 PM with status of Final
== END ==
LOC: HO.CARD 10:13
PROVIDERS: Visit Provider Internal Medicine Cardiovascular Disease
DX: Z01.810 Encounter for preprocedural cardiovascular examination (principal)
CPT/HCPCS: 93306; Q9957

== ENCOUNTER → 2023-01-26 10:16 | Outpatient (BNV) | payer OTHER, SELFPAY | PROVIDERS: Visit Provider Internal Medicine | DX: I35.8 Other nonrheumatic aortic valve disorders (principal); I51.9 Heart disease, unspecified | CPT/HCPCS: 93306 ==

== ENCOUNTER 2023-01-31 15:34 | Inpatient (IN) | payer OTHER, SELFPAY ==
--- NOTE | ~2023-01-31 | XR_ITS ---
EXAMINATION: XR TOES, LEFT CLINICAL INFORMATION: Pain in big toe COMPARISON: None available. TECHNIQUE: 3 views of the left toes were obtained. FINDINGS: There are no fractures or dislocations. No joint effusion is identified. No bone, joint or soft tissue abnormality is demonstrated. XR/XR toe LT min 2V IMPRESSION: Unremarkable examination.
[2023-01-31 15:48] VITALS: BP 85/57; PULSE 83; RESP 22; TEMP 36; O2SAT 97; BMI 16.6
--- NOTE | 2023-01-31 15:49 | ED_ITS ---
HPI - Extremity Problem General Chief complaint: Extremity Injury, Lower Stated complaint: Infection in toes Time Seen by Provider: 01/31/23 16:05 Source: patient Mode of arrival: ambulatory Limitations: no limitations History of Present Illness HPI Narrative: Patient is a 52 year old assigned female at with a history of PAD (on ASA and Plavix) and HTN presenting to the emergency department today with left great toe pain, nausea, and dry heaving for the last week. Patient states that over the last week she has had worsening left great toe pain after her dog smashed it and she has been having nausea and dry heaving. Patient states that she has not been able to eat much. Patient denies any dizziness, lightheadedness, abdominal pain, vomiting, fever, chills, blurry vision, double vision, loss of vision, chest pain, difficulty breathing, shortness of breath, back pain, night sweats, pain with urination, increased urinary frequency, increased urinary urgency, blood in her urine or stool, syncope or a near syncopal episode, recent trauma or falls, bowel incontinence, bladder incontinence, bowel retention, bladder retention, or any other complaints at this time. MD Complaint: extremity pain Related Data Home Medications Medication Instructions Recorded Confirmed aspirin 81 mg tablet,delayed 81 mg PO DAILY 12/18/22 01/31/23 release (Adult Aspirin Regimen) Previous Rx's Medication Instructions Recorded hydrochlorothiazide 12.5 mg tablet 12.5 mg PO DAILY #60 tabs 12/16/22 clopidogrel 75 mg tablet (Plavix) 75 mg PO DAILY #90 tabs 12/24/22 atorvastatin 80 mg tablet (Lipitor) 80 mg PO DAILY #30 tabs 01/21/23 Allergies Allergy/AdvReac Type Severity Reaction Status Date / Time No Known Allergies Allergy Verified 01/31/23 15:47 [No Known Allergies*] Review of Systems 2 Constitutional: Constitutional: Reports no additional constitutional complaints, Denies chills, Denies fever(s) and Denies night sweats Eyes: Eyes: Reports no additional eye complaints, Denies blurry vision, Denies change in vision, Denies diplopia, Denies eye discharge, Denies loss of vision and Denies eye pain ENT: Denies dizziness Cardiovascular: Cardiovascular: Reports no additional cardiovascular complaints, Denies chest pain, Denies lightheadedness, Denies Loss of Consciousness and Denies dyspnea Respiratory: Respiratory: Reports no additional respiratory complaints and Denies dyspnea Gastrointestinal: Gastrointestinal: Reports no additional gastrointestinal complaints, Denies abdominal pain, Denies melena, Denies hematochezia, Denies change in bowel habits, Denies change in stool character, Reports nausea and Denies vomiting Genitourinary: Genitourinary: Denies hematuria, Denies urinary frequency, Denies dysuria, Denies urinary incontinence, Denies urinary hesitancy and Denies urinary urgency Musculoskeletal: Musculoskeletal: Reports no additional musculoskeletal complaints, Denies numbness and Denies tingling Comments: left great toe pain Neurologic: Denies dizziness, Denies loss of vision, Denies numbness and Denies tingling Psychiatric: Psychiatric: Reports no additional psychiatric complaints Endocrine: Endocrine: Reports no additional endocrine complaints Hematologic/Lymphatic: Hematologic/Lymphatic: Reports no additional hematologic/lymphatic complaints Allergic/Immunologic: Allergic/Immunologic: Reports no additional allergic/immunologic complaints PMF Past Medical History Attestation statement: The following information was validated with the patient. Source: old records reviewed and nursing notes reviewed Medical History Hypertension PAD (peripheral artery disease) No known health problems Family History Family History Father Lung cancer Mother Lung cancer Brother No problems noted. Sister No problems noted. Social History Social History Housing: Apartment Alcohol intake: current Alcohol intake frequency: holidays/special occasions only Alcohol type: beer Patient Tobacco Use Status: Current everyday Tobacco user Tobacco use type: Cigarette Cigarettes Per Day: 10 Smoked in Last 30 Days: Yes Substance Use Type: Marijuana Substance Use Frequency: Weekly Advance Directives: No Advance Directives Information Provided: No Patient : No service: No Current occupational status: disabled Cognitive needs: No Hearing needs: No Vision needs: No Physical Exam 2 Vital Signs: Vital Signs: Last Vital Signs Temp 98.0 F 01/31/23 19:43 Pulse 78 01/31/23 21:53 Resp 15 01/31/23 21:53 BP 140/82 H 01/31/23 21:53 Pulse Ox 100 01/31/23 21:53 O2 Del Method Room Air 01/31/23 21:53 BMI result Body Mass Index 16.6 Const: General: cooperative, no acute distress, alert and awake Nutritional Appearance: well nourished Orientation/consciousness: patient oriented x3 Limitations: no limitations HEENT: Head: Yes normal to inspection and Yes atraumatic Ears: hearing grossly normal bilaterally and external ears normal General nose exam: Normal external nose present, no nasal discharge noted and no epistaxis Face and sinus: Yes normal facial exam, No abrasion and No laceration Mouth: Normal oral and palatal mucosa present, no drooling and no muffled voice Eyes: General: appearance normal, both eyes and all related structures P eriorbital: periorbital findings normal Eyelids: Yes eyelids normal C onjunctivae: conjunctivae normal Pupils: Equal, round and reactive pupils present EOM: EOMs intact bilaterally Neck: Neck: Yes normal visual inspection, Yes full ROM and Yes no lymphadenopathy Chest: Chest palpation & inspection: normal inspection of the chest Resp: Effort & Inspection: normal respiratory effort and able to speak in complete sentences Auscultation: clear to auscultation bilaterally Cardio: Rate: regular rate Rhythm: regular rhythm GI: Inspection: Yes normal to inspection Skin: Other: Neuro: General: patient oriented x3 and moves all extremities Cranial nerves: Yes Equal, round and reactive pupils present Cognition (Neuro): n ormal cognition Motor exam (neuro): 5/5 motor strength present throughout Sensory Exam: Normal double simultaneous stimulation for sensation C oordination: [id number] test normal Extrem: Other: decreased capillary refill to bilateral lower extremities, chronic for the patient given PAD General: Yes full ROM Psych: Appearance: grossly normal Mental Status: mental status grossly normal Affect: normal affect Attitude: cooperative Thought process: N ormal thought process present Thought content: Normal thought content present Insight: Good insight present (Psych) Course Course Course Narrative: Patient complains of left big toe pain for many weeks which got worse after the dog stepped on it 3 days ago and now has a small cut on the left big toe She has had pain from an ingrown toenail in the left big toe for some time, she also is being followed by a vascular surgeon for claudication X-ray ordered This is rapid medical exam and triage pending full evaluation by ER provider for full history and physical evaluation of results and disposition Medications Administered Generic Name Dose Route Start Last Admin Trade Name Freq PRN Reason Stop Dose Admin Potassium Chloride 10 meq in 100 mls @ 100 mls/hr 01/31/23 18:45 01/31/23 21:25 Potassium Chloride/H20 IV 01/31/23 22:44 100 mls/hr Q1H AVERY Administration Discontinued Medications Generic Name Dose Route Start Last Admin Trade Name Freq PRN Reason Stop Dose Admin Sodium Chloride 1,000 mls @ 999 mls/hr 01/31/23 17:00 01/31/23 19:13 Ns IV 01/31/23 18:00 Infused .Q1H1M AVERY Infusion Sodium Chloride 1,000 mls @ 999 mls/hr 01/31/23 19:45 01/31/23 21:25 Ns IV 01/31/23 20:45 Infused .Q1H1M AVERY Infusion Lorazepam 1 mg 01/31/23 16:42 01/31/23 17:55 Lorazepam 2 Mg/Ml Vial IVPUSH 01/31/23 16:43 1 mg ONCE ONE Administration Morphine Sulfate 4 mg 01/31/23 16:42 01/31/23 17:56 Morphine Sulfate 4 Mg/Ml Cartridge IVPUSH 01/31/23 16:43 4 mg ONCE ONE Administration Protocol Ondansetron HCl 4 mg 01/31/23 16:42 01/31/23 17:56 Ondansetron Hcl 4 Mg/2 Ml Vial IVPUSH 01/31/23 16:43 4 mg ONCE ONE Administration Medical Decision Making Medical Decision Making [facility] Narrative: Patient is a 52 year old assigned female at with a history of PAD (on ASA and Plavix) and HTN presenting to the emergency department today with left great toe pain, dry heaving, and nausea. Patient's physical exam was as noted in the physical exam portion of this note. Patient's blood work showed a decreased sodium of 129, a decreased potassium of 2.4, and a lactic of 3.1. Patient's EKG was markedly different from her previous. Patient's left toe x-ray showed no acute process. I consulted with the game engineer who recommended the patient have her potassium corrected and then have her CMP and EKG repeated. I spoke to the hospitalist who agreed to admission. I explained my physical exam findings as well as all test results to the patient. I answered all questions asked by the patient. Patient verbalized agreement and understanding with this treatment plan and admission. Differential Diagnosis Differential Diagnoses: The differential diagnosis associated with the presentation includes PAD Left great to injury Hypokalemia Hyponatremia Admission/Observation Consideration of admission/observation: Escalation of care including admission/observation considered Patient admitted. Consult Healthcare Provider Management of the patient was discussed with: Hospitalist (agreed to admission.) and Backpackers Manager (spoke to game engineer as noted in the MDM Rationale portion of this note.) Lab Data [facility] Lab Attestation statement: I reviewed the patient's lab results. My interpretation of these results are in the MDM Rationale portion of this note. 01/31/23 17:38 01/31/23 17:38 Labs: Lab Results 01/31/23 01/31/23 01/31/23 Range/Units 17:19 17:38 19:38 WBC 8.1 (4.8-10.8) X10*3/uL RBC 5.00 (4.20-5.50) X10*6/uL Hgb 17.5 H (12.0-16.0) g/dl Hct 45.3 (37.0-47.0) % MCV 90.6 (80.0-98.0) fL MCH 35.0 H (27.0-33.0) pg MCHC 38.6 H (31.0-35.0) g/dl RDW 11.2 (11.0-16.0) % Plt Count 228 (160-400) X10*3/uL MPV 10.5 (9.4-12.3) fL Immature Gran % (Auto) 0.7 H (0.0-0.4) % Neut % (Auto) 74.3 H (45-73) % Lymph % (Auto) 20.9 (20-40) % [place] % (Auto) 3.3 (2-11) % Eos % (Auto) 0.4 (0-4) % Baso % (Auto) 0.4 (0-2) % Lymph # (Auto) 1.7 (1.2-4.9) X10*3/uL [place] # (Auto) 0.3 (0.1-1.2) X10*3/uL Eos # (Auto) 0.0 (0.0-0.4) X10*3/uL Baso # (Auto) 0.0 (0.0-0.2) X10*3/uL Abs Immat Gran (auto) 0.06 H (0.00-0.03) X10*3/uL Absolute Neuts (auto) 6.1 (2.0-8.3) x10*3/uL Absolute Nucleated RBC 0.000 (0.0-0.012) X10*3/uL Nucleated RBC % (auto) 0.0 (0.0-0.2) /100WBC ESR 13 (0-20) MM/HR PT 14.7 H (11.1-13.3) SEC INR 1.2 H (0.9-1.1) APTT 31.0 (26.0-36.4) SEC Sodium 129 L (135-145) mmol/L Potassium 2.4 L* D (3.3-5.1) mmol/L Chloride 86 L (96-108) mmol/L Carbon Dioxide 24 (22-29) mmol/L Anion Gap 21 H (12-20) BUN 34 H (9-16) mg/dL Creatinine 1.37 (0.5-1.4) mg/dL Estim Creat Clear Calc 35.1 Estimated GFR 41 Random Glucose 114 (60-115) mg/dL Lactic Acid 3.1 H* (0.5-2.0) mmol/L Calcium 10.0 D (8.4-10.2) mg/dL Magnesium 2.0 (1.6-2.6) mg/dL Total Bilirubin 1.2 H (0.0-1.0) mg/dL AST 28 (5-31) U/L ALT 20 (0-31) U/L Alkaline Phosphatase 84 (39-117) U/L Troponin I High Sens 16.7 D 19.9 H (<3.5-17.0) ng/L C-Reactive Protein 3.11 H (< or = 0.50) mg/dL Total Protein 8.1 H (6.5-8.0) g/dL Albumin 4.4 (3.5-5.0) g/dL Influenza Type A (PCR) NEGATIVE (Negative) Influenza Type B (PCR) NEGATIVE (Negative) RSV RNA Qual (PCR) NEGATIVE (Negative) SARS-CoV-2 RNA (RT-PCR) NEGATIVE (Negative) Independent Interpretation I performed an independent interpretation of an: EKG and Plain X-Ray Interpretation: My interpretation is in agreement with the radiologist's impression of this imaging study. - EXAMINATION: XR TOES, LEFT CLINICAL INFORMATION: Pain in big toe COMPARISON: None available. TECHNIQUE: 3 views of the left toes were obtained. FINDINGS: There are no fractures or dislocations. No joint effusion is identified. No bone, joint or soft tissue abnormality is demonstrated. XR/XR toe LT min 2V IMPRESSION: Unremarkable examination. Dictated By: John Bhatt MD Signed By: Electronically signed by John Bhatt MD 01/31/23 1634 - Vent. Rate: 086 BPM Atrial Rate: 086 BPM P-R Int: 112 ms QRS Dur: 070 ms QT Int: 406 ms P-R-T Axes: 051 062 -52 degrees QTc Int: 485 ms Normal sinus rhythm Septal infarct (cited on or before 15-DEC-2022) ST & T wave abnormality, consider anterolateral ischemia Abnormal ECG When compared with ECG of 15-DEC-2022 21:14, Nonspecific T wave abnormality now evident in Inferior leads T wave inversion now evident in Anterolateral leads QT has lengthened DD/ 1858 Radiology Impression Discussion of test interpretation with radiology: I have reviewed the radiologist's reading. Critical Care Time Critical Care Time Critical Care Time: Yes Total Critical Care Time: 60 Attestation: I spent 60 minutes of Critical Care Time with this patient. This does not include time spent on separately reported billable procedures. Discharge Plan Discharge Clinical Impression: Acute hypokalemia, Acute hyponatremia, Acute electrocardiogram changes Patient Disposition: Admitted As Inpatient Prescriptions: No Action clopidogrel [Plavix] 75 mg tablet 75 mg PO DAILY Qty: 90 1RF hydrochlorothiazide 12.5 mg tablet 12.5 mg PO DAILY Qty: 60 0RF aspirin [Adult Aspirin Regimen] 81 mg tablet,delayed release (DR/EC) 81 mg PO DAILY atorvastatin [Lipitor] 80 mg tablet 80 mg PO DAILY Qty: 30 5RF
[2023-01-31 16:00] VITALS: BP 143/99; PULSE 103; RESP 18; TEMP 36.4; O2SAT 100
[2023-01-31 17:48] LABS: MANUAL DIFF FLAG NO
[2023-01-31] MEDS: LORazepam 2 MG/ML VIAL 1 MG IVPUSH (17:55)
[2023-01-31 17:56] LABS: INTERNATIONAL NORM RATIO 1.2 (0.9-1.1); Prothrombin Time 14.7 SEC (11.1-13.3)
[2023-01-31] MEDS: Morphine Sulfate 4 MG/ML CARTRIDGE IVPUSH (17:56)
[2023-01-31] MEDS: ondansetron HCL 4 MG/2 ML VIAL IVPUSH (17:56)
[2023-01-31] MEDS: 0.9 % Sodium Chloride 1,000 ML 999 ML IV ×2 (17:57→19:39)
[2023-01-31 18:03] LABS: Influenza A PCR NEGATIVE (Negative); Influenza B PCR NEGATIVE (Negative); Resp Syncy Virus RNA Qual PCR NEGATIVE (Negative); SARS COV2 PCR INHOUSE NEGATIVE (Negative)
[2023-01-31 18:09] LABS: Basophils Percent Auto 0.4 % (0-2); Eosinophils Percent Auto 0.4 % (0-4); Hematocrit 45.3 % (37.0-47.0); Hemoglobin 17.5 g/dl (12.0-16.0); Imm Gran Abs Auto 0.06 X10*3/uL (0.00-0.03); Imm Gran Pct Auto 0.7 % (0.0-0.4); Lymphocytes Absolute Auto 1.7 X10*3/uL (1.2-4.9); Lymphocytes Percent Auto 20.9 % (20-40); Mean Corpuscular Volume 90.6 fL (80.0-98.0); Mean Platelet Volume 10.5 fL (9.4-12.3); Monocytes Absolute Auto 0.3 X10*3/uL (0.1-1.2); Monocytes Percent Auto 3.3 % (2-11); Neutrophils Absolute Auto 6.1 x10*3/uL (2.0-8.3); Neutrophils Percent Auto 74.3 % (45-73); Platelet Count 228 X10*3/uL (160-400); Red Cell Distribution Width 11.2 % (11.0-16.0); SCAN SMEAR FLAG 1; White Blood Count 8.1 X10*3/uL (4.8-10.8)
[2023-01-31 18:16] LABS: Lactic Acid 3.1 mmol/L (0.5-2.0)
--- NOTE | 2023-01-31 18:23 | PC.NURSE ---
20g iv inserted RAC, labs drawn, fluids and iv meds given as documented.
[2023-01-31 18:26] LABS: Mean Corpuscular HGB Conc 38.6 g/dl (31.0-35.0)
[2023-01-31 18:31] LABS: Erythrocyte Sedimentation Rate 13 MM/HR (0-20)
[2023-01-31 18:35] LABS: Alanine Aminotransferase 20 U/L (0-31); Albumin Level 4.4 g/dL (3.5-5.0); Alkaline Phosphatase 84 U/L (39-117); Anion Gap 21 (12-20); Aspartate Amino Transferase 28 U/L (5-31); Bilirubin Total 1.2 mg/dL (0.0-1.0); Blood Urea Nitrogen 34 mg/dL (9-16); C Reactive Protein 3.11 mg/dL (< or = 0.50); Carbon Dioxide 24 mmol/L (22-29); Chloride 86 mmol/L (96-108); Creatinine Clr Calc Pharmacy 35.1; Estimated Glomerular Filt Rate 41; Glucose Random 114 mg/dL (60-115); Potassium 2.4 mmol/L (3.3-5.1); Sodium 129 mmol/L (135-145); Total Protein 8.1 g/dL (6.5-8.0)
--- NOTE | 2023-01-31 18:35 | ECG_ITS ---
Test Reason : ABNORMAL LABS Blood Pressure : / mmHG Vent. Rate : 086 BPM Atrial Rate : 086 BPM P-R Int : 112 ms QRS Dur : 070 ms QT Int : 406 ms P-R-T Axes : 051 062 -52 degrees QTc Int : 485 ms Normal sinus rhythm RSR' or QR pattern in V1 suggests right ventricular conduction delay ST & T wave abnormality, consider anterolateral ischemia Abnormal ECG When compared with ECG of 15-DEC-2022 21:14, T wave inversion now evident in Inferior leads T wave inversion now evident in Anterolateral leads QT has lengthened Referred By: Bela Marrero Electronically Signed By:MANDO MERIDA MD
[2023-01-31] MEDS: Potassium Chloride/H20 10 MEQ/100 ML PIGGYBACK 100 MEQ IV ×3 (19:13→21:25)
[2023-01-31 19:16] VITALS: BP 165/96; PULSE 88; RESP 16; TEMP 36.8; O2SAT 100
--- NOTE | 2023-01-31 19:25 | PC.NURSE ---
Patient is alert and oriented x3, VSS. Patient is able to make her needs known and using call sanchez appropriately. 20 G IV line in R AC is patient, First bag of Potassium 10 mEQ IV infusing. EKG completed by Jackie maintenance technician 2nd shift and reviewed by ED provider. Patient reports pain in left great toe is 10/10 at present, pain medication offered to patient. She would like to wait and take pain medication later. Patient in a stretcher bed, watching TV, call sanchez within patient' s reach.
[2023-01-31 19:36] LABS: Troponin-I High Sensitivity 16.7 ng/L (<3.5-17.0)
[2023-01-31 19:43] VITALS: BP 118/77; PULSE 83; RESP 21; TEMP 36.7; O2SAT 99
[2023-01-31 19:46] LABS: Reflex Lactate? Lactic Acid Added
[2023-01-31 20:00] VITALS: BP 148/85; PULSE 80; RESP 17; O2SAT 100
[2023-01-31 20:06] LABS: Troponin-I High Sensitivity 19.9 ng/L (<3.5-17.0)
--- NOTE | 2023-01-31 21:22 | PC.NURSE ---
Per Bela, ED provider repeat Lactic Acid to be collected after second bag of NS infused.
--- NOTE | 2023-01-31 21:39 | PC.NURSE ---
Hospitalist at bedside for admission assessment. Patient's home medications reconciled by this RN.
--- NOTE | 2023-01-31 21:52 | P.HPHOSP_ITS ---
[facility] Medical History Hypertension PAD (peripheral artery disease) No known health problems Family History Father Lung cancer Mother Lung cancer Brother No problems noted. Sister No problems noted. Social History Housing: Apartment Alcohol intake: current Alcohol intake frequency: holidays/special occasions only Alcohol type: beer Patient Tobacco Use Status: Current everyday Tobacco user Tobacco use type: Cigarette Cigarettes Per Day: 10 Smoked in Last 30 Days: Yes Substance Use Type: Marijuana Substance Use Frequency: Weekly Advance Directives: No Advance Directives Information Provided: No Patient : No service: No Current occupational status: disabled Cognitive needs: No Hearing needs: No Vision needs: No Meds Allergies Allergy/AdvReac Type Severity Reaction Status Date / Time No Known Allergies Allergy Verified 01/31/23 15:47 [No Known Allergies*] Active Medications: Current Medications Potassium Chloride (Potassium Chloride/H20) 10 meq in 100 mls @ 100 mls/hr IV Q1H AVERY Stop: 01/31/23 22:44 Last Admin: 01/31/23 21:25 Dose: 100 mls/hr Home Medications Medication Instructions Recorded Confirmed Last Taken Type aspirin 81 mg tablet,delayed 81 mg PO DAILY 12/18/22 01/31/23 Unknown History release (Adult Aspirin Regimen) Physical Exam 2 Vital Signs and Narrative: Vital Signs: Last Vital Signs Temp 98.0 F 01/31/23 19:43 Pulse 80 01/31/23 20:00 Resp 17 01/31/23 20:00 BP 148/85 H 01/31/23 20:00 Pulse Ox 100 01/31/23 20:00 O2 Del Method Room Air 01/31/23 20:00 BMI result Body Mass Index 16.6 Results Labs 01/31/23 17:38 01/31/23 17:38 Labs: Laboratory Results - last 24 hr 01/31/23 01/31/23 17:19 17:38 MCV 90.6 MCH 35.0 H MCHC 38.6 H RDW 11.2 Plt Count 228 MPV 10.5 Immature Gran % (Auto) 0.7 H Neut % (Auto) 74.3 H Lymph % (Auto) 20.9 [place] % (Auto) 3.3 Eos % (Auto) 0.4 Baso % (Auto) 0.4 Lymph # (Auto) 1.7 [place] # (Auto) 0.3 Eos # (Auto) 0.0 Baso # (Auto) 0.0 Abs Immat Gran (auto) 0.06 H Absolute Neuts (auto) 6.1 Absolute Nucleated RBC 0.000 Nucleated RBC % (auto) 0.0 ESR 13 PT 14.7 H INR 1.2 H APTT 31.0 Anion Gap 21 H Estim Creat Clear Calc 35.1 Estimated GFR 41 Random Glucose 114 Lactic Acid 3.1 H* Calcium 10.0 D Magnesium 2.0 Total Bilirubin 1.2 H AST 28 ALT 20 Alkaline Phosphatase 84 C-Reactive Protein 3.11 H Total Protein 8.1 H Albumin 4.4 Influenza Type A (PCR) NEGATIVE Influenza Type B (PCR) NEGATIVE RSV RNA Qual (PCR) NEGATIVE SARS-CoV-2 RNA (RT-PCR) NEGATIVE Imaging Radiologist's Impressions: Impressions Toe X-Ray 01/31/23 16:03 IMPRESSION: Unremarkable examination.
[2023-01-31 21:53] VITALS: BP 140/82; PULSE 78; RESP 15; O2SAT 100
--- NOTE | 2023-01-31 22:44 | PM.IMHP ---
History of Present Illness Date of Service: 01/31/23 Attending physician on admission: Neal Ricardo Chief Complaint: Feeling generally unwell with poor oral intake, nausea & vomiting x 1 week Patient is a 52 year old assigned female at with a history of PAD (on ASA and Plavix) and hypertension who presented to the emergency department today complaining of left great toe pain, nausea, and dry heaving for the last week. She states that she had an ingrown nail in the left big toe and that last week, her dog scratched the toe and this has developed into a painful wound with some purulence. During this time, she has also been experiencing persistent nausea and vomiting more so when she attempts to eat and as such has not eaten much which has made her loose a significant amount of weight. She also reports having difficulty sleeping although when I got to see her, she could hardly stay awake. She denies any associated fevers, chills or diarrhea. She reports compliance with her medications but continues to smoke 3 cigarettes a day (down from 30 cigarettes a day). Initial work up done in the emergency room was notable for hypokalemia with a serum potassium of 2.4 mmol/L and hyponatremia with a serum sodium of 129 mmol/L. Serum Magnesium was normal at 2.0 while both her lactic acid and CRP were elevated at 3.1 & 3.11 respectively. EKG done showed NSR at 85 bpm with TWI in the inferolateral leads but with no U wave. Initial Troponion I was 16.7 ng/L and repeat was 19.9 ng/L. She was started on IV potassium and admission requested. Review of Systems Review of Systems: 12 system review was completed and the positive findings are as documented in the HPI Yes all other systems are reviewed and are negative [facility] Medical History Hypertension PAD (peripheral artery disease) No known health problems Family History Father Lung cancer Mother Lung cancer Brother No problems noted. Sister No problems noted. Social History Household Members: Family Housing: Apartment Do you presently have visiting nurse or other home services: No Alcohol intake: current Alcohol intake frequency: holidays/special occasions only Alcohol type: beer Patient Tobacco Use Status: Current everyday Tobacco user Tobacco use type: Cigarette Cigarettes Per Day: 10 Smoked in Last 30 Days: Yes Patient Interested in Nicotine Replacement: No Patient Given Instructions on How to Stop Smoking: Yes Date Education Initiated: 02/01/23 Second Hand Smoke Exposure: No Use of substances other than those prescribed or required for medical reasons: Yes Substance Use Type: Marijuana Substance Use Frequency: Weekly Last Used Substance: Days (ago) Currently Displaying Signs/Symptoms of Drug Intoxication Withdrawal: No Have you been hit, kicked, punched, or otherwise hurt by someone within the past year? If so, by whom?: No Do you feel safe in your current relationship?: No Current Relationship Is there a partner from a previous relationship who is making you feel unsafe now?: No Are you made to feel afraid or neglected: No Advance Directives: No Advance Directives Information Provided: No Do you have thoughts of harming others: None Do you have a plan to hurt others: No Plan Recently lost weight without trying: Yes How much weight loss: 2-13 pounds Eating poorly because of decreased appetite: Yes Nutrition screen score: 4 Nutrition Risks: No Nutritional Risk Patient : No : No Poor oral hygiene: No service: No Current occupational status: disabled Cognitive needs: No Hearing needs: No Vision needs: No Meds Allergies Allergy/AdvReac Type Severity Reaction Status Date / Time No Known Allergies Allergy Verified 01/31/23 15:47 [No Known Allergies*] Home Medications Medication Instructions Recorded Confirmed Last Taken Type aspirin 81 mg tablet,delayed 81 mg PO DAILY 12/18/22 01/31/23 Unknown History release (Adult Aspirin Regimen) Physical Exam Vital Signs and Narrative: Vital Signs: Last Vital Signs Temp 98.0 F 01/31/23 19:43 Pulse 78 01/31/23 21:53 Resp 15 01/31/23 21:53 BP 140/82 H 01/31/23 21:53 Pulse Ox 100 01/31/23 21:53 O2 Del Method Room Air 01/31/23 21:53 BMI result Body Mass Index 16.6 Constitutional - Thin appearing WF. Sleepy. Mumbles answers. In no acute cardiopulmonary distress. Eyes - No pallor or jaundice. PERRLA, EOMI Neck: Supple. No cervical adenopathy. No JVD Cardiovascular - Regular rate and rhythm. Normal s1/s2.. No murmurs, rubs or gallops. No JVD. No peripheral edema. Respiratory - Normal respiratory effort. Good bilateral breath sounds. No rales, rhonchi or wheezes Gastrointestinal - Abdomen is soft, non tender, non-distended with normal bowel sounds. No hepatosplenomegaly Extremities - Left big toe with a bluish appearing wound on the distal and medial aspect of the toe with scant discharge. There is some streaking on the dorsomedial aspect of the left foot Skin - Warm/Dry. No rashes. No mottling. Capillary refill is < 2 seconds Neurological - AAOx4. Intact speech & cognition. Normal gait & balance. CN II - X!! grossly normal. No motor or sensory deficits Hematologic: No bleeding. No ecchymosis. No swollen or tender lymph nodes. Psychological - Appropriate affect Results Labs 01/31/23 17:38 01/31/23 17:38 Labs: CRP => 3.11 Lactic Acid => 3.1 Troponin I => 16.7 and 19.9 ECG Attestation: I personally reviewed and interpreted this ECG as follows: (NSR t 77 bpm with TWI in the anterolateral leads) Imaging Radiologist's Impressions: Impressions Toe X-Ray 01/31/23 16:03 IMPRESSION: Unremarkable examination. Assessment and Plan (1) Cellulitis of foot, left: Status: Acute (2) Acute hypokalemia: Status: Acute (3) Acute electrocardiogram changes: Status: Acute (4) Acute hyponatremia: Status: Acute (5) Acute renal failure: Qualifiers: Acute renal failure type: unspecified Qualified Code(s): N17.9 - Acute kidney failure, unspecified Status: Acute (6) Lactic acid increased: Status: Acute Plan 1. Cellulitis of left foot - left big toe appears to have an area of cellulitis that has spread proximally to involve the dorsum of the left foot. - started on IV Vancomycin - get wound cultures 2. Hypokalemia - severe at 2.4 mmol/L - due to decreased oral intake and vomiting - has normal serum magnesium - started on IV replacement - recheck in the morning 3. Hyponatremia - noted with low serum sodium at 129 mmol/L - secondary to dehydration - start on IV fluids 4. Acute renal failure - BUN 34 and creatinine 1.37 - likely with pre-renal azotemia due to vomiting and decreased oral intake - rehydrate and recheck in the morning 5. Elevated serum lactic acid - serum lactic acid is elevated at 3,1 - likely due to dehydration - improved after rehydration to 1 - monitor Quality Stroke Does the patient have a stroke diagnosis?: No VTE Prior VTE?: No VTE Risk Level:: Medical - moderate - high VTE Device Contraindication: Treatment Not Indicated VTE Drug Contraindication: N/A - Med Ordered
[2023-01-31] MEDS: Potassium Chloride Packet 20 MEQ PACKET 40 MEQ PO (23:50)
[2023-01-31] MEDS: Enoxaparin Sodium 40 MG/0.4 ML SYRINGE SUBCUT (23:50)
[2023-01-31] MEDS: vancomycin HCL 1,250 MG in 0.9 % Sodium Chloride 250 ML 166.67 MG IV (23:51)
[2023-01-31] MEDS: 0.9 % Sodium Chloride Flush 3 ML SYRINGE IVFLUSH (23:52)
[2023-02-01] VITALS (7 sets, daily range): BP systolic 118–185; BP diastolic 71–85; PULSE 74–90; RESP 16–18; TEMP 35.5–37; O2SAT 96–100
--- NOTE | 2023-02-01 00:25 | PC.NURSE ---
This RN called to pharmacy, compatibility for Vancomycin IV and Potassium Chloride IV confirmed by pharmacist.
[2023-02-01] MEDS: Potassium Chloride/H20 10 MEQ/100 ML PIGGYBACK 100 MEQ IV (00:33)
--- NOTE | 2023-02-01 00:51 | PC.NURSE ---
Nurse to nurse report given to KORINA Olson RN, patient to be transported to room 446 by technician telecommunication systems, belongings list completed.
--- NOTE | 2023-02-01 05:00 | ECG_ITS ---
Test Reason : ABNORMAL LABS Blood Pressure : / mmHG Vent. Rate : 085 BPM Atrial Rate : 085 BPM P-R Int : 116 ms QRS Dur : 074 ms QT Int : 412 ms P-R-T Axes : 026 062 -79 degrees QTc Int : 490 ms Normal sinus rhythm RSR' or QR pattern in V1 suggests right ventricular conduction delay ST & T wave abnormality, consider inferior ischemia ST & T wave abnormality, consider anterolateral ischemia Abnormal ECG When compared with ECG of 31-JAN-2023 18:58, No significant changes seen Referred By: Neal Ricardo Electronically Signed By:MANDO MERIDA MD
[2023-02-01 06:54] LABS: MANUAL DIFF FLAG NO
[2023-02-01 06:57] LABS: Basophils Percent Auto 0.4 % (0-2); Eosinophils Percent Auto 0.2 % (0-4); Hematocrit 36.9 % (37.0-47.0); Hemoglobin 13.7 g/dl (12.0-16.0); Imm Gran Abs Auto 0.03 X10*3/uL (0.00-0.03); Imm Gran Pct Auto 0.6 % (0.0-0.4); Lymphocytes Absolute Auto 1.9 X10*3/uL (1.2-4.9); Mean Corpuscular HGB Conc 37.1 g/dl (31.0-35.0); Mean Corpuscular Volume 94.4 fL (80.0-98.0); Mean Platelet Volume 10.7 fL (9.4-12.3); Monocytes Absolute Auto 0.2 X10*3/uL (0.1-1.2); Monocytes Percent Auto 4.9 % (2-11); Neutrophils Absolute Auto 2.7 x10*3/uL (2.0-8.3); Neutrophils Percent Auto 55.9 % (45-73); Platelet Count 170 X10*3/uL (160-400); Red Blood Count 3.91 X10*6/uL (4.20-5.50); Red Cell Distribution Width 11.3 % (11.0-16.0); White Blood Count 4.9 X10*3/uL (4.8-10.8)
[2023-02-01] MEDS: KCl 20 mEq in 0.9 % Sodium ChL 20 MEQ/1,000 ML IV.SOLN 200 MEQ IVCONT ×3 (07:19→22:30)
--- NOTE | 2023-02-01 07:31 | PHA.MEDREC ---
Pharmacy Consult ? Medication Reconciliation Pharmacy has reviewed the medication reconciliation compelted by Nory.
--- NOTE | 2023-02-01 07:32 | PHA.MEDREC ---
Pharmacy Consult ? Medication Reconciliation Pharmacy has completed the medication reconciliation. Reviewed med rec done by nursing (Nory).
[2023-02-01 08:18] LABS: Anion Gap 12 (12-20); Blood Urea Nitrogen 20 mg/dL (9-16); Calcium 8.4 mg/dL (8.4-10.2); Carbon Dioxide 20 mmol/L (22-29); Chloride 106 mmol/L (96-108); Creatinine Clr Calc Pharmacy 57.3; Estimated Glomerular Filt Rate > 60; Glucose Random 94 mg/dL (60-115); Magnesium 1.9 mg/dL (1.6-2.6); Potassium 3.6 mmol/L (3.3-5.1); Sodium 134 mmol/L (135-145)
[2023-02-01] MEDS: Atorvastatin Calcium 80 MG TABLET PO (08:26)
[2023-02-01] MEDS: Clopidogrel Bisulfate 75 MG TABLET PO (08:26)
[2023-02-01] MEDS: Aspirin Enteric Coated 81 MG TABLET.DR PO (08:26)
[2023-02-01] MEDS: 0.9 % Sodium Chloride Flush 3 ML SYRINGE IVFLUSH (08:27)
--- NOTE | 2023-02-01 08:31 | MHC.CM.PN ---
Interview conducted w/Pt.: Pt. lives w/brother. 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 Her daughter takes her where she needs to go. At time of D/C, her daughter or her brother will pick her up. D/C plan is return home w/her brother. CM to follow.
[2023-02-01 08:41] LABS: Thyroid Stimulating Hormone 1.58 uIU/mL (0.32-4.0)
--- NOTE | 2023-02-01 09:42 | HE.PHANOTE ---
RE VANCO SCR IMPROVING. WILL CHANGE DOSE TO 750MG Q12H, WITH LEVEL DUE TOMORROW 02/02 @ 0800 THEA
--- NOTE | 2023-02-01 10:11 | PM.CNCAR ---
History of Present Illness History of Present Illness Date of Service: 02/01/23 Requesting physician: Duke Rangel Chief complaint: abnormal ekg;hypokalemia;cellulitis of left hallux Narrative: 52-year-old female who is presenting with left foot pain. She has been experiencing nausea and vomiting and was noticed to be significantly hypokalemic. EKG had diffuse T-wave changes with prolonged QT interval. She is denying any chest discomfort shortness of breath. She is saying she is very sleepy right now and did not sleep last night. She denies chest discomfort shortness of breath. No documented symptoms previously had the nausea and vomiting. Potassium is improving. Recent echocardiogram was normal. [facility] Past Medical History Medical History Hypertension PAD (peripheral artery disease) No known health problems Family History Family History Father Lung cancer Mother Lung cancer Brother No problems noted. Sister No problems noted. Social History Social History Household Members: Family Housing: Apartment Do you presently have visiting nurse or other home services: No Alcohol intake: current Alcohol intake frequency: holidays/special occasions only Alcohol type: beer Patient Tobacco Use Status: Current everyday Tobacco user Tobacco use type: Cigarette Cigarettes Per Day: 10 Smoked in Last 30 Days: Yes Patient Interested in Nicotine Replacement: No Patient Given Instructions on How to Stop Smoking: Yes Date Education Initiated: 02/01/23 Second Hand Smoke Exposure: No Use of substances other than those prescribed or required for medical reasons: Yes Substance Use Type: Marijuana Substance Use Frequency: Weekly Last Used Substance: Days (ago) Currently Displaying Signs/Symptoms of Drug Intoxication Withdrawal: No Have you been hit, kicked, punched, or otherwise hurt by someone within the past year? If so, by whom?: No Do you feel safe in your current relationship?: No Current Relationship Is there a partner from a previous relationship who is making you feel unsafe now?: No Are you made to feel afraid or neglected: No Advance Directives: No Advance Directives Information Provided: No Do you have thoughts of harming others: None Do you have a plan to hurt others: No Plan Recently lost weight without trying: Yes How much weight loss: 2-13 pounds Eating poorly because of decreased appetite: Yes Nutrition screen score: 4 Nutrition Risks: No Nutritional Risk Patient : No : No Poor oral hygiene: No service: No Current occupational status: disabled Cognitive needs: No Hearing needs: No Vision needs: No Meds Allergies Allergy/AdvReac Type Severity Reaction Status Date / Time No Known Allergies Allergy Verified 01/31/23 15:47 [No Known Allergies*] Active Medications: Current Medications Acetaminophen (Acetaminophen 325 Mg Tablet) 650 mg PO Q6H PRN PRN Reason: Pain, Mild (Pain Scale 1-3) Al Hydroxide/Mg Hydroxide (Magnesium Hydrox/Alum Hydrox 30 Ml Oral.Susp) 30 ml PO Q4H PRN PRN Reason: Heartburn/Nausea Aspirin (Aspirin Enteric Coated 81 Mg Tablet.Dr) 81 mg PO DAILY [facility] Last Admin: 02/01/23 08:26 Dose: 81 mg Atorvastatin Calcium (Atorvastatin Calcium 80 Mg Tablet) 80 mg PO DAILY [facility] Last Admin: 02/01/23 08:26 Dose: 80 mg Benzonatate (Benzonatate 100 Mg Capsule) 100 mg PO TID PRN PRN Reason: Cough Clopidogrel Bisulfate (Clopidogrel Bisulfate 75 Mg Tablet) 75 mg PO DAILY [facility] Last Admin: 02/01/23 08:26 Dose: 75 mg Docusate Sodium (Docusate Sodium 100 Mg Capsule) 100 mg PO DAILY PRN PRN Reason: Constipation Enoxaparin Sodium (Enoxaparin Sodium 40 Mg/0.4 Ml Syringe) 40 mg SUBCUT Q24H [facility] Last Admin: 01/31/23 23:50 Dose: 40 mg Potassium Chloride/Sodium Chloride (Kcl 20 Meq In 0.9 % Sodium Chl) 20 meq in 1,000 mls @ 100 mls/hr IVCONT .Q10H [facility] Last Admin: 02/01/23 07:19 Dose: 200 mls/hr Vancomycin HCl 750 mg/ Sodium (Chloride) 265 mls @ 265 mls/hr IV Q12H [facility] Melatonin (Melatonin 3 Mg Tablet) 6 mg PO BEDTIME PRN PRN Reason: Insomnia Ondansetron HCl (Ondansetron Hcl 4 Mg/2 Ml Vial) 4 mg IVPUSH Q8H PRN PRN Reason: Nausea and Vomiting Pharmacy Consult (Consult Rx Vancomycin Dosing) 1 each MISCELLANE DAILY PRN PRN Reason: Consult order Senna (Sennosides 8.6 Mg Tablet) 17.2 mg PO BEDTIME PRN PRN Reason: Constipation Sodium Chloride (0.9 % Sodium Chloride Flush 3 Ml Syringe) 3 ml IVFLUSH QSHIFT [facility] Last Admin: 02/01/23 08:27 Dose: 3 ml Home Medications Medication Instructions Recorded Confirmed Last Taken Type aspirin 81 mg tablet,delayed 81 mg PO DAILY 12/18/22 01/31/23 Unknown History release (Adult Aspirin Regimen) Physical Exam Vital Signs: Vital Signs: Last Vital Signs Temp 98 F 02/01/23 06:56 Pulse 79 02/01/23 06:56 Resp 18 02/01/23 06:56 BP 131/76 02/01/23 06:56 Pulse Ox 99 02/01/23 06:56 O2 Del Method Room Air 02/01/23 06:56 BMI result Body Mass Index 16.6 GENERAL APPEARANCE: in no acute distress. SKIN: no suspicious lesions, warm and dry. HEART: no murmurs, regular rate and rhythm. LUNGS: clear to auscultation bilaterally. ABDOMEN: soft, nontender. EXTREMITIES: no edema. NEUROLOGIC: No gross deficits, AAO X 3 Objective Labs and Meds 02/01/23 06:12 02/01/23 06:12 Lab results: Laboratory Results - last 24 hr 01/31/23 01/31/23 01/31/23 17:19 17:38 19:38 WBC 8.1 RBC 5.00 Hgb 17.5 H Hct 45.3 MCV 90.6 MCH 35.0 H MCHC 38.6 H RDW 11.2 Plt Count 228 MPV 10.5 Immature Gran % (Auto) 0.7 H Neut % (Auto) 74.3 H Lymph % (Auto) 20.9 [place] % (Auto) 3.3 Eos % (Auto) 0.4 Baso % (Auto) 0.4 Lymph # (Auto) 1.7 [place] # (Auto) 0.3 Eos # (Auto) 0.0 Baso # (Auto) 0.0 Abs Immat Gran (auto) 0.06 H Absolute Neuts (auto) 6.1 Absolute Nucleated RBC 0.000 Nucleated RBC % (auto) 0.0 ESR 13 PT 14.7 H INR 1.2 H APTT 31.0 Sodium 129 L Potassium 2.4 L* D Chloride 86 L Carbon Dioxide 24 Anion Gap 21 H BUN 34 H Creatinine 1.37 Estim Creat Clear Calc 35.1 Estimated GFR 41 Random Glucose 114 Lactic Acid 3.1 H* Lactic Acid F/U @ 2Hr Calcium 10.0 D Magnesium 2.0 Total Bilirubin 1.2 H AST 28 ALT 20 Alkaline Phosphatase 84 Troponin I High Sens 16.7 D 19.9 H C-Reactive Protein 3.11 H Total Protein 8.1 H Albumin 4.4 TSH Influenza Type A (PCR) NEGATIVE Influenza Type B (PCR) NEGATIVE RSV RNA Qual (PCR) NEGATIVE SARS-CoV-2 RNA (RT-PCR) NEGATIVE 01/31/23 02/01/23 22:15 06:12 WBC 4.9 RBC 3.91 L D Hgb 13.7 D Hct 36.9 L MCV 94.4 MCH 35.0 H MCHC 37.1 H RDW 11.3 Plt Count 170 D MPV 10.7 Immature Gran % (Auto) 0.6 H Neut % (Auto) 55.9 Lymph % (Auto) 38.0 [place] % (Auto) 4.9 Eos % (Auto) 0.2 Baso % (Auto) 0.4 Lymph # (Auto) 1.9 [place] # (Auto) 0.2 Eos # (Auto) 0.0 Baso # (Auto) 0.0 Abs Immat Gran (auto) 0.03 Absolute Neuts (auto) 2.7 Absolute Nucleated RBC 0.000 Nucleated RBC % (auto) 0.0 ESR PT INR APTT Sodium 134 L Potassium 3.6 D Chloride 106 D Carbon Dioxide 20 L Anion Gap 12 BUN 20 H Creatinine 0.84 Estim Creat Clear Calc 57.3 Estimated GFR > 60 Random Glucose 94 Lactic Acid Lactic Acid F/U @ 2Hr 1.0 Calcium 8.4 D Magnesium 1.9 Total Bilirubin AST ALT Alkaline Phosphatase Troponin I High Sens C-Reactive Protein Total Protein Albumin TSH 1.58 Influenza Type A (PCR) Influenza Type B (PCR) RSV RNA Qual (PCR) SARS-CoV-2 RNA (RT-PCR) Imaging Radiologist's impression: Impressions Toe X-Ray 01/31/23 16:03 IMPRESSION: Unremarkable examination. Assessment and Plan (1) Acute electrocardiogram changes: Status: Acute Plan 52-year-old female with ongoing nausea and vomiting for few days who presented with left foot pain and cellulitis. EKG was abnormal showing diffuse T-wave inversions in the precordial leads. She has no chest discomfort shortness of breath. Electrolytes are abnormal and she had significant hypokalemia. Repeat the EKG was potassium is more than 4. Recommend limited echocardiogram tomorrow to assess for any wall motion abnormalities. Her hydrochlorothiazide should be discontinued on discharge. Thank you for allowing me to participate in the care of your patient. Please feel free to contact me if you have any questions. Procedures Date of Service Date of Service: 02/01/23
[2023-02-01] MEDS: vancomycin HCL 750 MG in 0.9 % Sodium Chloride 250 ML 265 MG IV ×2 (10:50→21:13)
--- NOTE | 2023-02-01 11:44 | HO.PM.IMPN ---
Subjective Subjective Date of Service: 02/01/23 Interval History: seen and evaluated this morning erythema improving having pain in big toe electrolytes improving Review of Systems Review of Systems: Yes all other systems are reviewed and are negative Physical Exam Vital Signs: Vital Signs: Last Vital Signs Temp 96 F L 02/01/23 10:55 Pulse 90 02/01/23 10:55 Resp 16 02/01/23 10:55 BP 144/75 H 02/01/23 10:55 Pulse Ox 97 02/01/23 10:55 O2 Del Method Room Air 02/01/23 10:55 BMI result Body Mass Index 16.6 Const: Other: Constitutional : Awake, interactive, not in distress Neck : Normal inspection, Supple Cardiovascular : RRR, no JVP, no lower extremity edema Respiratory : good bilateral air entry, no crackles, wheezes or rhonchi Gastrointestinal: soft, lax, Normal bowel sounds, Non tender Skin : Warm, Dry, left big toe blackish tip, erythema in foot improving, no significant tenderness Neurological : Alert & oriented x3, No focal deficit Skin: Other: Objective Data Active Medications Acetaminophen (Acetaminophen 325 Mg Tablet) 650 mg PO Q6H PRN PRN Reason: Pain, Mild (Pain Scale 1-3) Al Hydroxide/Mg Hydroxide (Magnesium Hydrox/Alum Hydrox 30 Ml Oral.Susp) 30 ml PO Q4H PRN PRN Reason: Heartburn/Nausea Aspirin (Aspirin Enteric Coated 81 Mg Tablet.) 81 mg PO DAILY REPLACED BY [facility] Last Admin: 02/01/23 08:26 Dose: 81 mg Documented By: JOSE Atorvastatin Calcium (Atorvastatin Calcium 80 Mg Tablet) 80 mg PO DAILY REPLACED BY [facility] Last Admin: 02/01/23 08:26 Dose: 80 mg Documented By: JOSE Benzonatate (Benzonatate 100 Mg Capsule) 100 mg PO TID PRN PRN Reason: Cough Clopidogrel Bisulfate (Clopidogrel Bisulfate 75 Mg Tablet) 75 mg PO DAILY REPLACED BY [facility] Last Admin: 02/01/23 08:26 Dose: 75 mg Documented By: JOSE Docusate Sodium (Docusate Sodium 100 Mg Capsule) 100 mg PO DAILY PRN PRN Reason: Constipation Enoxaparin Sodium (Enoxaparin Sodium 40 Mg/0.4 Ml Syringe) 40 mg SUBCUT Q24H REPLACED BY [facility] Last Admin: 01/31/23 23:50 Dose: 40 mg Documented By: OSCAR Potassium Chloride/Sodium Chloride (Kcl 20 Meq In 0.9 % Sodium Chl) 20 meq in 1,000 mls @ 100 mls/hr IVCONT .Q10H REPLACED BY [facility] Last Admin: 02/01/23 07:19 Dose: 200 mls/hr Documented By: JOSE DE JESUS Vancomycin HCl 750 mg/ Sodium (Chloride) 265 mls @ 265 mls/hr IV Q12H REPLACED BY [facility] Last Admin: 02/01/23 10:50 Dose: 265 mls/hr Documented By: JOSE Melatonin (Melatonin 3 Mg Tablet) 6 mg PO BEDTIME PRN PRN Reason: Insomnia Ondansetron HCl (Ondansetron Hcl 4 Mg/2 Ml Vial) 4 mg IVPUSH Q8H PRN PRN Reason: Nausea and Vomiting Oxycodone HCl (Oxycodone Hcl Immed Release 5 Mg Tablet) 5 mg PO Q6H PRN PRN Reason: Pain, Severe (Pain Scale 7-10) Pharmacy Consult (Consult Rx Vancomycin Dosing) 1 each MISCELLANE DAILY PRN PRN Reason: Consult order Senna (Sennosides 8.6 Mg Tablet) 17.2 mg PO BEDTIME PRN PRN Reason: Constipation Sodium Chloride (0.9 % Sodium Chloride Flush 3 Ml Syringe) 3 ml IVFLUSH QSHIFT REPLACED BY [facility] Last Admin: 02/01/23 08:27 Dose: 3 ml Documented By: JOSE Labs 02/01/23 06:12 02/01/23 06:12 Labs: Laboratory Results - last 24 hr 01/31/23 01/31/23 01/31/23 17:19 17:38 22:15 MCV 90.6 MCH 35.0 H MCHC 38.6 H RDW 11.2 Plt Count 228 MPV 10.5 Immature Gran % (Auto) 0.7 H Neut % (Auto) 74.3 H Lymph % (Auto) 20.9 [place] % (Auto) 3.3 Eos % (Auto) 0.4 Baso % (Auto) 0.4 Lymph # (Auto) 1.7 [place] # (Auto) 0.3 Eos # (Auto) 0.0 Baso # (Auto) 0.0 Abs Immat Gran (auto) 0.06 H Absolute Neuts (auto) 6.1 Absolute Nucleated RBC 0.000 Nucleated RBC % (auto) 0.0 ESR 13 PT 14.7 H INR 1.2 H APTT 31.0 Anion Gap 21 H Estim Creat Clear Calc 35.1 Estimated GFR 41 Random Glucose 114 Lactic Acid 3.1 H* Lactic Acid F/U @ 2Hr 1.0 Calcium 10.0 D Magnesium 2.0 Total Bilirubin 1.2 H AST 28 ALT 20 Alkaline Phosphatase 84 C-Reactive Protein 3.11 H Total Protein 8.1 H Albumin 4.4 TSH Influenza Type A (PCR) NEGATIVE Influenza Type B (PCR) NEGATIVE RSV RNA Qual (PCR) NEGATIVE SARS-CoV-2 RNA (RT-PCR) NEGATIVE 02/01/23 06:12 MCV 94.4 MCH 35.0 H MCHC 37.1 H RDW 11.3 Plt Count 170 D MPV 10.7 Immature Gran % (Auto) 0.6 H Neut % (Auto) 55.9 Lymph % (Auto) 38.0 [place] % (Auto) 4.9 Eos % (Auto) 0.2 Baso % (Auto) 0.4 Lymph # (Auto) 1.9 [place] # (Auto) 0.2 Eos # (Auto) 0.0 Baso # (Auto) 0.0 Abs Immat Gran (auto) 0.03 Absolute Neuts (auto) 2.7 Absolute Nucleated RBC 0.000 Nucleated RBC % (auto) 0.0 ESR PT INR APTT Anion Gap 12 Estim Creat Clear Calc 57.3 Estimated GFR > 60 Random Glucose 94 Lactic Acid Lactic Acid F/U @ 2Hr Calcium 8.4 D Magnesium 1.9 Total Bilirubin AST ALT Alkaline Phosphatase C-Reactive Protein Total Protein Albumin TSH 1.58 Influenza Type A (PCR) Influenza Type B (PCR) RSV RNA Qual (PCR) SARS-CoV-2 RNA (RT-PCR) Assessment and Plan (1) Acute renal failure: Status: Acute (2) Cellulitis of foot, left: Status: Acute (3) Acute hyponatremia: Status: Acute (4) Acute hypokalemia: Status: Acute Plan 52 years old female with left foot pain and erythema. # Cellulitis of left foot left big toe appears to have an area of cellulitis that has spread proximally to involve the dorsum of the left foot. IV Vancomycin wound cultures wound care follow trough level # Hypokalemia resolved cut down IVF # Hyponatremia Improved to 134 # Acute renal failure resolved with IVF monitor I\O # Elevated serum lactic acid resolved DVT PPx Lovenox The patient will need overnight stay for treatment of cellulitis Quality Stroke Does the patient have a stroke diagnosis?: No VTE Prior VTE?: No VTE Risk Level:: Medical - moderate - high VTE Device Contraindication: Treatment Not Indicated VTE Drug Contraindication: N/A - Med Ordered
[2023-02-01] MEDS: oxyCODONE HCl Immed Release 5 MG TABLET PO ×2 (12:19→21:05)
[2023-02-01] MEDS: Melatonin 3 MG TABLET 6 MG PO (21:05)
[2023-02-01] MEDS: Enoxaparin Sodium 40 MG/0.4 ML SYRINGE SUBCUT (21:06)
[2023-02-02] MEDS: ondansetron HCL 4 MG/2 ML VIAL IVPUSH (00:02)
[2023-02-02] MEDS: 0.9 % Sodium Chloride Flush 3 ML SYRINGE IVFLUSH ×3 (00:04→15:29)
[2023-02-02 04:00] VITALS: BP 155/72; PULSE 80; TEMP 36.7; O2SAT 95
--- NOTE | 2023-02-02 07:00 | CA_ITS ---
Transthoracic Echocardiogram Limited Patient (Last, First, Middle): Faiza Valladares Marie Gender: Female Date of : 1970 Age: 52 Procedure Date: 02/02/2023 Procedure Type: Transthoracic Echocardiogram Limited Location: [facility] [place] Height: 165.1 cm Weight: 45.36 kg BSA: 1.47 m2 Heart Rate: bpm BP: 155 / 88 mmHg Live In Caregiver: Referring MD: Justo Cortes MD Flame Cutting Machine Operator: Mehran Henriquez MD Symptoms: Abnormal ekg Study Quality: Fair ECG Rhythm: Sinus Conclusions: - Normal LV ejection fraction 60 65% with impaired relaxation filling pattern Findings Left Ventricle Normal left ventricular size, thickness, and systolic function. The visually estimated ejection fraction is between 60-65%. Spectral Doppler is indicative of an impaired relaxation filling pattern. E/E prime ratio is between 8 and 15 consistent with indeterminate filling pressures. possible basal inferolateral hypokinesis noted, although this could be due to off axis views as well Prior Study Comparison No significant change compared to prior study dated: 01/26/2023. Measurements 2D Linear Measurements IVSd: 0.83 0.6-0.9/0.6-1.0 cm LVIDd: 3.61 3.9-5.3/4.2-5.9 cm LVIDd Index: 2.46 2.4-3.2/2.2-3.1 cm/m2 LVIDs: 2.46 2.0-3.6 cm LVPWd: 0.91 0.7-1.1 cm LV Mass: 109.61 67-162/88-224 g LV Mass Index: 74.57 43-95/49-115 g/m2 Mitral Valve MV Pk E: 0.48 MV PK A: 0.70 MV Decel Time: 124.00 E/A: 0.70 E'Lateral: 6.96 E'Medial: 6.64 E/E' Med: 7.20 E/E' Lat: 6.90 PHT: 36.00 MVA PHT: 6.11 Decel Grayson: 3.88 Diastolic Function MV Pk E: 0.48 MV Pk A: 0.70 E/A: 0.70 E'Medial: 6.64 E/E' Med: 7.20 E' Laterial: 6.96 E/E' Lat: 6.90 Tricuspid Valve TR Pk Ronald: 1.75 TR Pk Grad: 12.00 Updated in Other Vendor System with Status of Final Mehran Henriquez MD electronically signed on 02/02/2023 4:54:10 PM with status of Final
[2023-02-02 07:50] VITALS: BP 155/88; PULSE 84; RESP 19; TEMP 36.2; O2SAT 100
[2023-02-02 09:02] LABS: Hematocrit 37.3 % (37.0-47.0); Hemoglobin 13.4 g/dl (12.0-16.0); Mean Corpuscular HGB Conc 35.9 g/dl (31.0-35.0); Mean Corpuscular Hemoglobin 34.5 pg (27.0-33.0); Mean Corpuscular Volume 96.1 fL (80.0-98.0); Mean Platelet Volume 10.4 fL (9.4-12.3); Platelet Count 163 X10*3/uL (160-400); Red Blood Count 3.88 X10*6/uL (4.20-5.50); Red Cell Distribution Width 11.4 % (11.0-16.0); White Blood Count 5.4 X10*3/uL (4.8-10.8)
[2023-02-02 09:14] LABS: Vancomycin Random 17.1 mcg/mL (15-20)
[2023-02-02 09:19] LABS: Anion Gap 12 (12-20); Blood Urea Nitrogen 7 mg/dL (9-16); Calcium 8.2 mg/dL (8.4-10.2); Carbon Dioxide 20 mmol/L (22-29); Chloride 105 mmol/L (96-108); Creatinine Clr Calc Pharmacy 70.8; Estimated Glomerular Filt Rate > 60; Glucose Random 101 mg/dL (60-115); Potassium 3.2 mmol/L (3.3-5.1); Sodium 134 mmol/L (135-145)
--- NOTE | 2023-02-02 09:25 | HE.PHANOTE ---
VANCO DOSE ADJUSTMENT BASED ON SCR AND TROUGH OF 17.1 DOSE CONTINUED AT 750 MG Q12H. NEXT TROUGH AT 01/03 @ 2000
[2023-02-02] MEDS: vancomycin HCL 750 MG in 0.9 % Sodium Chloride 250 ML 265 MG IV ×2 (11:14→23:03)
[2023-02-02] MEDS: Aspirin Enteric Coated 81 MG TABLET.DR PO (11:19)
[2023-02-02] MEDS: Atorvastatin Calcium 80 MG TABLET PO (11:19)
[2023-02-02] MEDS: Clopidogrel Bisulfate 75 MG TABLET PO (11:19)
[2023-02-02 11:26] VITALS: BP 173/97; PULSE 86; RESP 19; TEMP 36.6
--- NOTE | 2023-02-02 11:44 | HO.WOUND ---
Wound Consult: Initial 52yr old female admitted to [facility] on? Yes01/31/23 21:54- See progress notes and H&P for detailed history. Arrival to bedside pt was agreeable to assessment - she reports she follows with Dr Shepherd in the past for her vascular procedures. The left great toe appears vascular / arterial related - foot is pink cool and no Palpable pulses - pt reports they are using doppler to assess her puleses direct care nurse not available at the time ofmy assessment to confirm. Recommend Consult to Dr. Shepherd / Vascular services for evaulation. Treated with Betadine and dry gauze today. Right Great Toe Etiology: Suspected Arterial Wound Measurements: see chart details for measurements Wound Bed: dry / moist necrotic black tissue Drainage / Odor: Mild odor noted - no drainage observed Edges: ? Irregular Katya wound: ? Red pink blanchable tissue - cool to touch No Induration, No Fluctuance Pain: Pt reports significant pain Goals of Treatment: ? Defer to Vascular services Recommendations: 1. Left Great Toe - [place] with Betadine, allow to dry. Cover with dry gauze. Do not use foam dressings at this time.
[2023-02-02] MEDS: KCl 20 mEq in 0.9 % Sodium ChL 20 MEQ/1,000 ML IV.SOLN 100 MEQ IVCONT (12:19)
[2023-02-02 12:52] VITALS: BMI 16.6
--- NOTE | 2023-02-02 12:58 | MHC.CLN ---
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 PT DOES NOT WANT MILK LIKE SUPPLEMENTS AT THIS TIME WILL TRIAL ENSURE CLEAR BID TO PROVIDE 480KCALS, 16G PROTEIN MONITOR PO INTAKE AND SUPP ACCEPTANCE SEE ALSO FULL CLINICAL NUTRITION ASSESSMENT
--- NOTE | 2023-02-02 12:59 | P.CDIM_ITS ---
PROVIDER RESPONSE TEXT: To clarify, the appropriate diagnosis supported by the clinical indicators: Underweight QUERY TEXT: PHYSICIAN'S DOCUMENTATION REQUEST Date of Query: 02/02/2023 12:25 PM EST Patient Name: KAYCEE OSORIO Admit Date: 02/01/2023 Dear Justo Cortes, A review of the medical record indicates additional documentation may be needed. Please review below and update the documentation accordingly. Clinical Indicators: BMI 16.6 5ft 5in 45.359kg If possible, please provide an associated diagnosis related to the low BMI, such as: Underweight Cachexia Malnutrition mild, moderate or severe Other (explain)Clinically unable to determine (explain)Thank you, Vee Mckeon, CCS, CDIS Use of terms such as suspected, likely, concern for, or probable (associated with a specific diagnosi s that is being evaluated, monitored, or treated as if it exists) are acceptable and can be coded in the inpatient se tting, when documented at the time of discharge. Please use your independent medical judgment in providing your response. THIS QUERY IS PART OF THE PERMANENT MEDICAL RECORD
[2023-02-02] MEDS: Promethazine HCL 25 MG TABLET PO (13:16)
--- NOTE | 2023-02-02 14:10 | P.PNIM_ITS ---
Subjective Subjective Date of Service: 02/02/23 Interval History: cellulitis left foot Review of Systems erythema improving having pain in big toe ,also has small bluish area side of toe. electrolytes improving Physical Exam 2 Vital Signs: Vital Signs: Last Vital Signs Temp 97.8 F 02/02/23 11:26 Pulse 86 02/02/23 11:26 Resp 19 02/02/23 11:26 BP 173/97 H 02/02/23 11:26 Pulse Ox 100 02/02/23 07:50 O2 Del Method Room Air 02/02/23 11:26 FiO2 100 02/02/23 11:26 BMI result Body Mass Index 16.6 Constitutional : Awake, interactive, not in distress Neck : Normal inspection, Supple Cardiovascular : RRR, no JVP, no lower extremity edema Respiratory : good bilateral air entry, no crackles, wheezes or rhonchi Gastrointestinal: soft, lax, Normal bowel sounds, Non tender Skin : Warm, Dry, left big toe blackish tip, erythema in foot improving, no significant tenderness Neurological : Alert & oriented x3, No focal deficit Objective Data Active Medications Acetaminophen (Acetaminophen 325 Mg Tablet) 650 mg PO Q6H PRN PRN Reason: Pain, Mild (Pain Scale 1-3) Al Hydroxide/Mg Hydroxide (Magnesium Hydrox/Alum Hydrox 30 Ml Oral.Susp) 30 ml PO Q4H PRN PRN Reason: Heartburn/Nausea Aspirin (Aspirin Enteric Coated 81 Mg Tablet.) 81 mg PO DAILY [facility] Last Admin: 02/02/23 11:19 Dose: 81 mg Documented By: YINKA Atorvastatin Calcium (Atorvastatin Calcium 80 Mg Tablet) 80 mg PO DAILY [facility] Last Admin: 02/02/23 11:19 Dose: 80 mg Documented By: YINKA Benzonatate (Benzonatate 100 Mg Capsule) 100 mg PO TID PRN PRN Reason: Cough Clopidogrel Bisulfate (Clopidogrel Bisulfate 75 Mg Tablet) 75 mg PO DAILY [facility] Last Admin: 02/02/23 11:19 Dose: 75 mg Documented By: YINKA Docusate Sodium (Docusate Sodium 100 Mg Capsule) 100 mg PO DAILY PRN PRN Reason: Constipation Enoxaparin Sodium (Enoxaparin Sodium 40 Mg/0.4 Ml Syringe) 40 mg SUBCUT Q24H [facility] Last Admin: 02/01/23 21:06 Dose: 40 mg Documented By: JUAN DAVID Potassium Chloride/Sodium Chloride (Kcl 20 Meq In 0.9 % Sodium Chl) 20 meq in 1,000 mls @ 100 mls/hr IVCONT .Q10H [facility] Last Admin: 02/02/23 12:19 Dose: 100 mls/hr Documented By: YINKA Vancomycin HCl 750 mg/ Sodium (Chloride) 265 mls @ 265 mls/hr IV Q12H [facility] Last Infusion: 02/02/23 12:20 Dose: Infused Documented By: YINKA Melatonin (Melatonin 3 Mg Tablet) 6 mg PO BEDTIME PRN PRN Reason: Insomnia Last Admin: 02/01/23 21:05 Dose: 6 mg Documented By: JUAN DAVID Ondansetron HCl (Ondansetron Hcl 4 Mg/2 Ml Vial) 4 mg IVPUSH Q8H PRN PRN Reason: Nausea and Vomiting Last Admin: 02/02/23 00:02 Dose: 4 mg Documented By: AGUILAR Oxycodone HCl (Oxycodone Hcl Immed Release 5 Mg Tablet) 5 mg PO Q6H PRN PRN Reason: Pain, Severe (Pain Scale 7-10) Last Admin: 02/01/23 21:05 Dose: 5 mg Documented By: JUAN DAVID Pharmacy Consult (Consult Rx Vancomycin Dosing) 1 each MISCELLANE DAILY PRN PRN Reason: Consult order Senna (Sennosides 8.6 Mg Tablet) 17.2 mg PO BEDTIME PRN PRN Reason: Constipation Sodium Chloride (0.9 % Sodium Chloride Flush 3 Ml Syringe) 3 ml IVFLUSH QSHIFT [facility] Last Admin: 02/02/23 11:19 Dose: 3 ml Documented By: YINKA Zolpidem Tartrate (Zolpidem Tartrate 5 Mg Tablet) 5 mg PO BEDTIME PRN PRN Reason: Insomnia Labs 02/02/23 08:21 02/02/23 08:21 Labs: Laboratory Results - last 24 hr 02/02/23 08:21 MCV 96.1 MCH 34.5 H MCHC 35.9 H RDW 11.4 Plt Count 163 MPV 10.4 Absolute Nucleated RBC 0.000 Nucleated RBC % (auto) 0.0 Anion Gap 12 Estim Creat Clear Calc 70.8 Estimated GFR > 60 Random Glucose 101 Calcium 8.2 L Random Vancomycin 17.1 Microbiology Microbiology Results: Microbiology 01/31/23 17:53 Blood Culture - Preliminary Blood - Venous No growth after 24 hours. 01/31/23 17:38 Blood Culture - Preliminary Blood - Venous No growth after 24 hours. Assessment and Plan (1) Acute renal failure: Status: Acute (2) Cellulitis of foot, left: Status: Acute (3) Acute hyponatremia: Status: Acute (4) Acute hypokalemia: Status: Acute Plan 52 years old female with left foot pain and erythema. Cellulitis of left foot left big toe appears to have an area of cellulitis that has spread proximally to involve the dorsum of the left foot. patient also has PVD-Successful stent of right external iliac (nov ) by Dr gonzales-on asa/plavix. left big toe top area ahs bluish area -considering pvd hx ,will add vascular eval IV Vancomycin wound cultures,wound care follow trough level Hypokalemia repleted stop IVF moniter bmp Hyponatremia Improved to 134 Acute renal failure resolved with IVF monitor I\O Elevated serum lactic acid resolved abnormal ekg: denies any chest pain replete potassium seen by cardio- suggested for adding echo. DVT PPx Lovenox The patient will need overnight stay for treatment of cellulitis ,pvd -need vascular eval, also cardiac workup for abnormal ekg Quality Stroke Does the patient have a stroke diagnosis?: No VTE Prior VTE?: No VTE Risk Level:: Medical - moderate - high VTE Device Contraindication: Treatment Not Indicated VTE Drug Contraindication: N/A - Med Ordered
[2023-02-02 15:14] VITALS: BP 135/79; PULSE 93; RESP 18; TEMP 36.6; O2SAT 100
[2023-02-02] MEDS: Potassium Chloride Packet 20 MEQ PACKET PO (15:28)
[2023-02-02 19:30] VITALS: BP 145/88; PULSE 98; RESP 18; TEMP 36.3; O2SAT 98
[2023-02-02] MEDS: Zolpidem Tartrate 5 MG TABLET PO (20:37)
[2023-02-02] MEDS: Enoxaparin Sodium 40 MG/0.4 ML SYRINGE SUBCUT (23:02)
[2023-02-03] VITALS (7 sets, daily range): BP systolic 140–151; BP diastolic 67–85; PULSE 65–89; RESP 18–20; TEMP 36.2–37.6; O2SAT 98–100
[2023-02-03 05:58] LABS: Anion Gap 13 (12-20); Blood Urea Nitrogen 7 mg/dL (9-16); Carbon Dioxide 19 mmol/L (22-29); Chloride 105 mmol/L (96-108); Creatinine Clr Calc Pharmacy 75.2; Estimated Glomerular Filt Rate > 60; Glucose Random 92 mg/dL (60-115); Sodium 134 mmol/L (135-145)
[2023-02-03] MEDS: Clopidogrel Bisulfate 75 MG TABLET PO (08:47)
[2023-02-03] MEDS: Aspirin Enteric Coated 81 MG TABLET.DR PO (08:47)
[2023-02-03] MEDS: Potassium Chloride Packet 20 MEQ PACKET PO (08:47)
[2023-02-03] MEDS: Potassium Chloride Packet 20 MEQ PACKET 40 MEQ PO (08:47)
[2023-02-03] MEDS: Atorvastatin Calcium 80 MG TABLET PO (08:47)
[2023-02-03] MEDS: 0.9 % Sodium Chloride Flush 3 ML SYRINGE IVFLUSH (08:48)
--- NOTE | 2023-02-03 09:06 | PM.CNGS ---
History of Present Illness Consult details Consult date: 02/03/23 Reason for consult: wound care Narrative: Complex 52-year-old female presents for vascular evaluation. She had originally seen us back in November after an emergency room referral for significant left leg pain. She was discovered to have significant peripheral vascular disease. She had subsequently undergone endovascular intervention and was in need of a bypass. She was in the process of obtaining an outpatient cardiac risk stratification workup and her father unfortunately . She did not show up to her stress test as well. Her leg has now gone on to critical limb ischemia. She has developed a great toe ulcer. She now presents for vascular evaluation. Review of Systems Review of Systems: Yes all other systems are reviewed and are negative Constitutional: Constitutional: Reports no additional constitutional complaints ENT: Reports Normal hearing present Cardiovascular: Cardiovascular: Denies chest pain, Denies chest pain at rest, Denies chest pain with activity and Denies pedal edema Respiratory: Respiratory: Denies cough Gastrointestinal: Gastrointestinal: Denies abdominal pain Musculoskeletal: Musculoskeletal: Denies abnormal gait, Denies muscle cramps and Denies radiating pain into limb Integumentary/Breasts: Skin/Breast: Denies skin ulcer and Denies wounds Neurologic: Reports Normal hearing present and Denies abnormal gait Psychiatric: Psychiatric: Reports no additional psychiatric complaints PMFSH Past Medical History Medical History Hypertension PAD (peripheral artery disease) No known health problems Family History Family History Father Lung cancer Mother Lung cancer Brother No problems noted. Sister No problems noted. Social History Social History Household Members: Family Housing: Apartment Do you presently have visiting nurse or other home services: No Alcohol intake: current Alcohol intake frequency: holidays/special occasions only Alcohol type: beer Patient Tobacco Use Status: Current everyday Tobacco user Tobacco use type: Cigarette Cigarettes Per Day: 10 Smoked in Last 30 Days: Yes Patient Interested in Nicotine Replacement: No Patient Given Instructions on How to Stop Smoking: Yes Date Education Initiated: 02/01/23 Second Hand Smoke Exposure: No Use of substances other than those prescribed or required for medical reasons: Yes Substance Use Type: Marijuana Substance Use Frequency: Weekly Last Used Substance: Days (ago) Currently Displaying Signs/Symptoms of Drug Intoxication Withdrawal: No Have you been hit, kicked, punched, or otherwise hurt by someone within the past year? If so, by whom?: No Do you feel safe in your current relationship?: No Current Relationship Is there a partner from a previous relationship who is making you feel unsafe now?: No Are you made to feel afraid or neglected: No Advance Directives: No Advance Directives Information Provided: No Do you have thoughts of harming others: None Do you have a plan to hurt others: No Plan Recently lost weight without trying: Yes How much weight loss: 2-13 pounds Eating poorly because of decreased appetite: Yes Nutrition screen score: 4 Nutrition Risks: No Nutritional Risk Patient : No : No Poor oral hygiene: No service: No Current occupational status: disabled Cognitive needs: No Hearing needs: No Vision needs: No Meds Allergies Allergy/AdvReac Type Severity Reaction Status Date / Time No Known Allergies Allergy Verified 01/31/23 15:47 [No Known Allergies*] Active Medications: Current Medications Acetaminophen (Acetaminophen 325 Mg Tablet) 650 mg PO Q6H PRN PRN Reason: Pain, Mild (Pain Scale 1-3) Al Hydroxide/Mg Hydroxide (Magnesium Hydrox/Alum Hydrox 30 Ml Oral.Susp) 30 ml PO Q4H PRN PRN Reason: Heartburn/Nausea Aspirin (Aspirin Enteric Coated 81 Mg Tablet.Dr) 81 mg PO DAILY [facility] Last Admin: 02/03/23 08:47 Dose: 81 mg Atorvastatin Calcium (Atorvastatin Calcium 80 Mg Tablet) 80 mg PO DAILY [facility] Last Admin: 02/03/23 08:47 Dose: 80 mg Benzonatate (Benzonatate 100 Mg Capsule) 100 mg PO TID PRN PRN Reason: Cough Clopidogrel Bisulfate (Clopidogrel Bisulfate 75 Mg Tablet) 75 mg PO DAILY [facility] Last Admin: 02/03/23 08:47 Dose: 75 mg Docusate Sodium (Docusate Sodium 100 Mg Capsule) 100 mg PO DAILY PRN PRN Reason: Constipation Enoxaparin Sodium (Enoxaparin Sodium 40 Mg/0.4 Ml Syringe) 40 mg SUBCUT Q24H [facility] Last Admin: 02/02/23 23:02 Dose: 40 mg Vancomycin HCl 750 mg/ Sodium (Chloride) 265 mls @ 265 mls/hr IV Q12H [facility] Last Infusion: 02/03/23 00:47 Dose: Infused Melatonin (Melatonin 3 Mg Tablet) 6 mg PO BEDTIME PRN PRN Reason: Insomnia Last Admin: 02/01/23 21:05 Dose: 6 mg Ondansetron HCl (Ondansetron Hcl 4 Mg/2 Ml Vial) 4 mg IVPUSH Q8H PRN PRN Reason: Nausea and Vomiting Last Admin: 02/02/23 00:02 Dose: 4 mg Oxycodone HCl (Oxycodone Hcl Immed Release 5 Mg Tablet) 5 mg PO Q6H PRN PRN Reason: Pain, Severe (Pain Scale 7-10) Last Admin: 02/01/23 21:05 Dose: 5 mg Pharmacy Consult (Consult Rx Vancomycin Dosing) 1 each MISCELLANE DAILY PRN PRN Reason: Consult order Senna (Sennosides 8.6 Mg Tablet) 17.2 mg PO BEDTIME PRN PRN Reason: Constipation Sodium Chloride (0.9 % Sodium Chloride Flush 3 Ml Syringe) [facility] Admin: 02/03/23 08:48 Dose: 3 ml Zolpidem Tartrate (Zolpidem Tartrate 5 Mg Tablet) 5 mg PO BEDTIME PRN PRN Reason: Insomnia Last Admin: 02/02/23 20:37 Dose: 5 mg Home Medications Medication Instructions Recorded Confirmed Last Taken Type aspirin 81 mg tablet,delayed 81 mg PO DAILY 12/18/22 01/31/23 Unknown History release (Adult Aspirin Regimen) Physical Exam Vital Signs: Vital Signs: Last Vital Signs Temp 98.3 F 02/03/23 07:50 Pulse 65 02/03/23 07:50 Resp 19 02/03/23 07:50 BP 148/78 H 02/03/23 07:50 Pulse Ox 98 02/03/23 03:52 O2 Del Method Room Air 02/03/23 07:50 FiO2 100 02/03/23 07:50 BMI result Body Mass Index 16.6 Const: General: cooperative, healthy appearing and comfortable Orientation/consciousness: oriented to person, oriented to place and oriented to time HEENT: Head: Yes normal to inspection Neck: Neck: Yes normal visual inspection Carotids: no bruits Chest: Chest palpation & inspection: normal inspection of the chest Resp: Effort & Inspection: normal respiratory effort and able to speak in complete sentences Auscultation: clear to auscultation bilaterally, no crackles, no rales, no rhonchi and no wheezes Cardio: Other: Left side DP signal Rate: regular rate Rhythm: regular rhythm Heart sounds: S1 normal heart sound present and S2 normal heart sound present Bruits: no carotid bruits Peripheral pulses: Peripheral pulses 2+ throughout GI: Inspection: Yes normal to inspection Skin: Other: Left great toe ulcer Wounds: no wounds Hair: normal Neuro: General: oriented to person, oriented to place and oriented to time Cranial nerves: Yes CN's II-XII intact bilaterally and Yes Normal hearing present Cognition (Neuro): normal cognition Motor exam (neuro): 5/5 motor strength present throughout Extrem: Other: venous exam: No significant superficial varicosities or spider telangiectasias, minimal edema General: No clubbing, No cyanosis and No edema Psych: Appearance: grossly normal Mental Status: mental status grossly normal Speech and movement: Normal speech and movement present Results Labs 02/02/23 08:21 02/03/23 05:19 Labs: Abnormal lab results 02/02/23 02/03/23 Range/Units 08:21 05:19 Sodium 134 L 134 L (135-145) mmol/L Potassium 3.2 L 3.0 L (3.3-5.1) mmol/L Carbon Dioxide 20 L 19 L (22-29) mmol/L BUN 7 L 7 L (9-16) mg/dL Calcium 8.2 L 8.0 L (8.4-10.2) mg/dL BMP 02/02/23 02/03/23 08:21 05:19 Sodium 134 L 134 L Potassium 3.2 L 3.0 L Chloride 105 105 Carbon Dioxide 20 L 19 L BUN 7 L 7 L Creatinine 0.68 0.64 Calcium 8.2 L 8.0 L All other labs normal. Assessment and Plan (1) PAD (peripheral artery disease): Status: Acute Plan In short patient has significant peripheral vascular disease. It has progressed on to critical limb ischemia where she is now developing ulcerations. I did discuss this with her and I think in her best interest for limb salvage would need to be worked up as inpatient and would plan for bypass this hospital visit. She will need electrolytes brought back within normal limits. In addition I have asked Cardiology to Veronica see her for cardiac risk stratification and possibly stress test which was not not obtained as an outpatient. We will closely follow this patient with you. Thank you for allowing us to assist in her care. Procedures Date of Service Date of Service: 02/03/23
[2023-02-03] MEDS: vancomycin HCL 750 MG in 0.9 % Sodium Chloride 250 ML 265 MG IV (11:04)
[2023-02-03 11:12] LABS: CDiff Gene PCR NEGATIVE (Negative)
[2023-02-03] MEDS: ondansetron HCL 4 MG/2 ML VIAL IVPUSH (11:29)
--- NOTE | 2023-02-03 14:30 | P.PNIM_ITS ---
Subjective Subjective Date of Service: 02/03/23 Interval History: cellulitis left foot Review of Systems erythema improving - pain in big toe ,also has small bluish area side of toe. electrolytes improving Physical Exam 2 Vital Signs: Vital Signs: Last Vital Signs Temp 98.4 F 02/03/23 11:51 Pulse 89 02/03/23 11:51 Resp 19 02/03/23 11:51 BP 151/85 H 02/03/23 11:51 Pulse Ox 99 02/03/23 11:51 O2 Del Method Room Air 02/03/23 11:51 FiO2 100 02/03/23 07:50 BMI result Body Mass Index 16.6 Constitutional : Awake, interactive, not in distress Neck : Normal inspection, Supple Cardiovascular : RRR, no JVP, no lower extremity edema Respiratory : good bilateral air entry, no crackles, wheezes or rhonchi Gastrointestinal: soft, lax, Normal bowel sounds, Non tender Skin : Warm, Dry, left big toe blackish tip, erythema in foot improving, no significant tenderness Neurological : Alert & oriented x3, No focal deficit Objective Data Active Medications Acetaminophen (Acetaminophen 325 Mg Tablet) 650 mg PO Q6H PRN PRN Reason: Pain, Mild (Pain Scale 1-3) Al Hydroxide/Mg Hydroxide (Magnesium Hydrox/Alum Hydrox 30 Ml Oral.Susp) 30 ml PO Q4H PRN PRN Reason: Heartburn/Nausea Aspirin (Aspirin Enteric Coated 81 Mg Tablet.) 81 mg PO DAILY [facility] Last Admin: 02/03/23 08:47 Dose: 81 mg Documented By: ISIDRO Atorvastatin Calcium (Atorvastatin Calcium 80 Mg Tablet) 80 mg PO DAILY [facility] Last Admin: 02/03/23 08:47 Dose: 80 mg Documented By: ISIDRO Benzonatate (Benzonatate 100 Mg Capsule) 100 mg PO TID PRN PRN Reason: Cough Clopidogrel Bisulfate (Clopidogrel Bisulfate 75 Mg Tablet) 75 mg PO DAILY [facility] Last Admin: 02/03/23 08:47 Dose: 75 mg Documented By: ISIDRO Docusate Sodium (Docusate Sodium 100 Mg Capsule) 100 mg PO DAILY PRN PRN Reason: Constipation Enoxaparin Sodium (Enoxaparin Sodium 40 Mg/0.4 Ml Syringe) 40 mg SUBCUT Q24H [facility] Last Admin: 02/02/23 23:02 Dose: 40 mg Documented By: ANANYA Vancomycin HCl 750 mg/ Sodium (Chloride) 265 mls @ 265 mls/hr IV Q12H [facility] Last Infusion: 02/03/23 13:16 Dose: Infused Documented By: ISIDRO Melatonin (Melatonin 3 Mg Tablet) 6 mg PO BEDTIME PRN PRN Reason: Insomnia Last Admin: 02/01/23 21:05 Dose: 6 mg Documented By: JUAN DAVID Ondansetron HCl (Ondansetron Hcl 4 Mg/2 Ml Vial) 4 mg IVPUSH Q8H PRN PRN Reason: Nausea and Vomiting Last Admin: 02/03/23 11:29 Dose: 4 mg Documented By: ISIDRO Oxycodone HCl (Oxycodone Hcl Immed Release 5 Mg Tablet) 5 mg PO Q6H PRN PRN Reason: Pain, Severe (Pain Scale 7-10) Last Admin: 02/01/23 21:05 Dose: 5 mg Documented By: JUAN DAVID Pharmacy Consult (Consult Rx Vancomycin Dosing) 1 each MISCELLANE DAILY PRN PRN Reason: Consult order Senna (Sennosides 8.6 Mg Tablet) 17.2 mg PO BEDTIME PRN PRN Reason: Constipation Sodium Chloride (0.9 % Sodium Chloride Flush 3 Ml [facility]ringe) [facility] Admin: 02/03/23 08:48 Dose: 3 ml Documented By: ISIDRO Zolpidem Tartrate (Zolpidem Tartrate 5 Mg Tablet) 5 mg PO BEDTIME PRN PRN Reason: Insomnia Last Admin: 02/02/23 20:37 Dose: 5 mg Documented By: ANANYA Labs 02/02/23 08:21 02/03/23 05:19 Labs: Laboratory Results - last 24 hr 02/03/23 02/03/23 05:19 10:18 Hold Purple Top SEE NOTE Anion Gap 13 Estim Creat Clear Calc 75.2 Estimated GFR > 60 Random Glucose 92 Calcium 8.0 L C. difficile Tox B Gene NEGATIVE Microbiology Microbiology Results: Microbiology 01/31/23 17:53 Blood Culture - Preliminary Blood - Venous No growth after 48 hours. 01/31/23 17:38 Blood Culture - Preliminary Blood - Venous No growth after 48 hours. Assessment and Plan (1) Acute electrocardiogram changes: Status: Acute (2) PAD (peripheral artery disease): Status: Acute Assessment and Plan: 52 years old female with left foot pain and erythema. Cellulitis of left foot,possible toe ischemia left big toe appears to have an area of cellulitis that has spread proximally to involve the dorsum of the left foot. patient also has PVD-Successful stent of right external iliac (nov ) by Dr gonzales-on asa/plavix. left big toe top area ahs bluish area -considering pvd hx vanco trough is 17.1 IV Vancomycin,wound cultures,wound care seen by vascular-patient need cardio eval for riskstartification for plan for bypass for pvd /left foot. Hypokalemia-repleted stop IVF moniter bmp Hyponatremia Improved to 134 Acute renal failure resolved with IVF monitor I\O Elevated serum lactic acid resolved abnormal ekg: denies any chest pain replete potassium seen by cardio, echo:Left Ventricle Normal left ventricular size, thickness, and systolic function. The visually estimated ejection fraction is between 60-65%. patient is already on asa,plavix,statin. DVT PPx Lovenox The patient will need overnight stay for treatment of cellulitis ,pvd -need vascular eval, also cardiac workup for abnormal ekg Quality Stroke Does the patient have a stroke diagnosis?: No VTE Prior VTE?: No VTE Risk Level:: Medical - moderate - high VTE Device Contraindication: Treatment Not Indicated VTE Drug Contraindication: N/A - Med Ordered
[2023-02-03] MEDS: Dextrose 5 % and 0.9 % NaCl 1,000 ML 80 ML IVCONT (15:42)
[2023-02-03] MEDS: Zolpidem Tartrate 5 MG TABLET PO (20:20)
[2023-02-03 20:25] LABS: Vancomycin Random 19.4 mcg/mL (15-20)
[2023-02-03] MEDS: Enoxaparin Sodium 40 MG/0.4 ML SYRINGE SUBCUT (23:48)
[2023-02-04 03:40] VITALS: BP 136/86; PULSE 98; RESP 20; TEMP 36.4; O2SAT 97
[2023-02-04] MEDS: Dextrose 5 % and 0.9 % NaCl 1,000 ML 80 ML IVCONT (03:48)
[2023-02-04 06:34] LABS: Creatinine Clr Calc Pharmacy 75.2; Estimated Glomerular Filt Rate > 60
[2023-02-04 07:14] VITALS: BP 143/74; PULSE 71; RESP 18; TEMP 37.2; O2SAT 99
[2023-02-04 09:01] LABS: Vancomycin Random 10.6 mcg/mL (15-20)
[2023-02-04 09:06] LABS: Potassium 3.3 mmol/L (3.3-5.1)
[2023-02-04] MEDS: Atorvastatin Calcium 80 MG TABLET PO (09:16)
[2023-02-04] MEDS: Clopidogrel Bisulfate 75 MG TABLET PO (09:16)
[2023-02-04] MEDS: 0.9 % Sodium Chloride Flush 3 ML SYRINGE IVFLUSH (09:16)
[2023-02-04] MEDS: Aspirin Enteric Coated 81 MG TABLET.DR PO (09:17)
--- NOTE | 2023-02-04 09:28 | HE.PHANOTE ---
RE:NEERU Cortes canceled the neeru order but now wants patient back on it. Dose is 750mg q12h with predicted trough of 15 and predicted AUC of 500 (for skin infection). Next trough level is schedule for 02/05/23 @0800.
--- NOTE | 2023-02-04 09:49 | P.PNVS_ITS ---
Subjective Subjective Date of Service: 02/04/23 Patient reports: no new complaints and feels better Interval history: 52-year-old female with critical lower extremity ischemia presents for follow- up. Continues to have these nonhealing ulcers in lower extremity pain. In particular her great toe. She is in need of surgical bypass. Currently undergoing cardiac risk stratification. Physical Exam Vital Signs: Vital Signs: Last Vital Signs Temp 98.9 F 02/04/23 07:14 Pulse 71 02/04/23 07:14 Resp 18 02/04/23 07:14 BP 143/74 H 02/04/23 07:14 Pulse Ox 99 02/04/23 07:14 O2 Del Method Room Air 02/04/23 07:14 FiO2 100 02/03/23 07:50 BMI result Body Mass Index 16.6 Const: General: cooperative, healthy appearing and no acute distress Orientation/consciousness: oriented to person, oriented to place and oriented to time HEENT: Head: Yes normal to inspection Neck: Carotids: no bruits Chest: Chest palpation & inspection: normal inspection of the chest Resp: Effort & Inspection: normal respiratory effort and able to speak in complete sentences Auscultation: clear to auscultation bilaterally Cardio: Other: Left DP signal only Rate: regular rate Heart sounds: S1 normal heart sound present and S2 normal heart sound present GI: Inspection: Yes normal to inspection Skin: Other: Left great toe with ischemic take changes along with ankle ulcer General skin exam: no rashes or lesions noted Wounds: no wounds Neuro: General: oriented to person, oriented to place, oriented to time and CN's II-XI intact bilaterally Extrem: General: Yes normal to inspection, Yes full ROM and Yes no clubbing, cyanosis or edema Psych: Appearance: grossly normal and well kempt Speech and movement: Normal speech and movement present Affect: normal affect Progress Note: A&P Assessment and plan (1) PAD (peripheral artery disease): Status: Acute Assessment and Plan: In short patient will require bypass. Case discussed with cardiology and they are considering cardiac catheterization. Echo was reviewed and does reveal an ejection fraction of nearly 60-65%. Await further input from Cardiology with potential plan. Continue medical management. Thank you for allowing us to assist in her care. If there are any questions or concerns please do not hesitate to contact us. Time Spent With Patient Time: Total time managing care of this patient today ____ minutes. Procedures Date of Service Date of Service: 02/04/23 Quality Stroke Does the patient have a stroke diagnosis?: No VTE Prior VTE?: No VTE Risk Level:: Medical - moderate - high VTE Device Contraindication: Treatment Not Indicated VTE Drug Contraindication: N/A - Med Ordered
--- NOTE | 2023-02-04 10:08 | P.PNCA_ITS ---
Subjective Subjective Date of Service: 02/04/23 Principal diagnosis: Preop assessment Interval history: Patient being planned to undergo surgery for critical limb ischemia as inpatient. Patient the past had abnormal EKG and now has some ball motion abnormality in the posterior wall. This is highly suggestive of resting myocardial ischemia in left main/circumflex territory. Patient continues to deny any chest discomfort. However is now planned to undergo high risk noncardiac surgery. Review of Systems Constitutional: Reports no additional constitutional complaints Cardiovascular: Reports no additional cardiovascular complaints Respiratory: Reports no additional respiratory complaints Gastrointestinal: Reports no additional gastrointestinal complaints Musculoskeletal: Reports no additional musculoskeletal complaints Psychiatric: Reports no additional psychiatric complaints Physical Exam Vital Signs: Last Vital Signs Temp 98.9 F 02/04/23 07:14 Pulse 71 02/04/23 07:14 Resp 18 02/04/23 07:14 BP 143/74 H 02/04/23 07:14 Pulse Ox 99 02/04/23 07:14 O2 Del Method Room Air 02/04/23 07:14 FiO2 100 02/03/23 07:50 BMI result Body Mass Index 16.6 GENERAL APPEARANCE: in no acute distress. SKIN: no suspicious lesions, warm and dry. HEART: no murmurs, regular rate and rhythm. LUNGS: clear to auscultation bilaterally. ABDOMEN: soft, nontender. EXTREMITIES: no edema. NEUROLOGIC: No gross deficits, AAO X 3 Objective Labs and Meds 02/02/23 08:21 02/04/23 05:25 Lab results: Laboratory Results - last 24 hr 02/03/23 02/03/23 02/04/23 10:18 19:55 05:25 Hold Purple Top SEE NOTE Potassium 3.3 Creatinine 0.64 Estim Creat Clear Calc 75.2 Estimated GFR > 60 Stl C. cayetanensis PCR Cancelled Stool Rotavirus A PCR Cancelled Stl Adenov F 40/41 PCR Cancelled Stool Astrovirus (PCR) Cancelled Stool Campylobacter PCR Cancelled Stool Cryptosporidium PCR Cancelled Stl Sh Tox Pr E STEC PCR Cancelled Stool E coli O157 PCR Cancelled Stl Enterotoxigenic E PCR Cancelled Stool EPEC (PCR) Cancelled Stool EAEC (PCR) Cancelled Stl E. histolytica PCR Cancelled Stool Giardia Lamblia PCR Cancelled Stl P. shigelloides PCR Cancelled Stool Salmonella PCR Cancelled Stool Sapovirus (PCR) Cancelled Stl Shigella/EIEC PCR Cancelled St Y.enterocolitica PCR Cancelled Stool Vibrio (PCR) Cancelled Stl Vibrio cholerae PCR Cancelled Stl Norovirus GI/GII PCR Cancelled Random Vancomycin 19.4 C. difficile Tox B Gene NEGATIVE 02/04/23 08:24 Hold Purple Top Potassium Creatinine Estim Creat Clear Calc Estimated GFR Stl C. cayetanensis PCR Stool Rotavirus A PCR Stl Adenov F 40/41 PCR Stool Astrovirus (PCR) Stool Campylobacter PCR Stool Cryptosporidium PCR Stl Sh Tox Pr E STEC PCR Stool E coli O157 PCR Stl Enterotoxigenic E PCR Stool EPEC (PCR) Stool EAEC (PCR) Stl E. histolytica PCR Stool Giardia Lamblia PCR Stl P. shigelloides PCR Stool Salmonella PCR Stool Sapovirus (PCR) Stl Shigella/EIEC PCR St Y.enterocolitica PCR Stool Vibrio (PCR) Stl Vibrio cholerae PCR Stl Norovirus GI/GII PCR Random Vancomycin 10.6 L C. difficile Tox B Gene Imaging Radiologist's impression: Impressions Toe X-Ray 01/31/23 16:03 IMPRESSION: Unremarkable examination. Progress Note: A&P Assessment and plan (1) Abnormal EKG: Status: Acute Assessment and Plan: Abnormal EKG with wall motion abnormality in the patient with diffuse peripheral vascular disease is suggestive resting myocardial ischemia although she does not have any active myocardial symptoms. She is proposed to have major noncardiac surgery done under general anesthesia. I think she needs further evaluation for myocardial ischemia and I thing the best option would be cardiac catheterization to evaluate for coronary anatomy. This was discussed with the patient and the primary team. We discussed the risks, benefits, alternatives. Patient is agreeable. Will arrange for transfer to [facility] today. Will obtain vascular evaluation in [facility] for critical limb ischemia. Will follow up on with her as outpatient Time Spent With Patient Time: Total time managing care of this patient today ____ minutes. Progress Note: Quality Stroke Does the patient have a stroke diagnosis?: No Procedures Date of Service Date of Service: 02/04/23
--- NOTE | 2023-02-04 10:13 | MHC.CM.PN ---
Per ROUNDS discussion, Patient may be transferred to [facility] for further Cardiac W/U and possible surgery; CM will follow.
[2023-02-04 11:05] VITALS: BP 175/95; PULSE 77; RESP 20; TEMP 36.7; O2SAT 100
[2023-02-04] MEDS: amLODIPine Besylate 2.5 MG TABLET PO (11:46)
--- NOTE | 2023-02-04 11:46 | P.DS_ITS ---
DS: Providers Provider Date of Service: 02/04/23 Date of admission: 01/31/23 21:54 Date of discharge: 02/04/23 Primary care physician: Unknown Physician Consults: 02/01/23 10:11 Consult to Cardiology Routine Consulting Provider: [facility] [place] Cardiovascular Services Reason for consultation: abnormal ECG Has provider been notified: Yes 02/01/23 11:44 Consult to Wound Care Routine Reason for consultation: eval and rec. 02/02/23 12:24 Consult to Vascular Surgery Routine Consulting Provider: [facility] [place] Vascular Services Reason for consultation: PVD - has toes cellulitis / cyanosis Has provider been notified: No 02/03/23 09:04 Consult to Cardiology Routine Consulting Provider: [facility] [place] Cardiovascular Services Reason for consultation: Risks factors strat preop for leg bypass; stress test was pend as outpt. Has provider been notified: No DS: Diagnosis Discharge Diagnosis (1) Abnormal EKG: Status: Acute (2) Acute renal failure: Status: Acute (3) Cellulitis of foot, left: Status: Acute (4) Acute electrocardiogram changes: Status: Acute (5) Hypertension: Status: Acute DS: Summary Hospital Course Hospital Course: 52 year old assigned female at with a history of PAD (on ASA and Plavix) and hypertension who presented to the emergency department today complaining of left great toe pain, nausea, and dry heaving for the last week. She states that she had an ingrown nail in the left big toe and that last week, her dog scratched the toe and this has developed into a painful wound with some purulence. During this time, she has also been experiencing persistent nausea and vomiting more so when she attempts to eat and as such has not eaten much which has made her loose a significant amount of weight. She also reports having difficulty sleeping although when I got to see her, she could hardly stay awake. She denies any associated fevers, chills or diarrhea. She reports compliance with her medications but continues to smoke 3 cigarettes a day (down from 30 cigarettes a day). Initial work up done in the emergency room was notable for hypokalemia with a serum potassium of 2.4 mmol/L and hyponatremia with a serum sodium of 129 mmol/L. Serum Magnesium was normal at 2.0 while both her lactic acid and CRP were elevated at 3.1 & 3.11 respectively. EKG done showed NSR at 85 bpm with TWI in the inferolateral leads but with no U wave. Initial Troponion I was 16.7 ng/L and repeat was 19.9 ng/L. She was started on IV potassium and admission requested. Hospital course: Patient initially admitted for left foot erythema and pain- possible cellulitis says in setting of peripheral vascular disease: Patient was started on IV vancomycin and vascular was consulted: Recommended for cardiology evaluation for risk stratification-for for vascular bypass surgery. Patient was seen by Cardiology: Patient has abnormal EKG, EF is 60-65% on echo:Abnormal EKG with wall motion abnormality in the patient with diffuse peripheral vascular disease is suggestive resting myocardial ischemia although she does not have any active myocardial symptoms. She is proposed to have major noncardiac surgery done under general anesthesia. cardiology recomended further evaluation for myocardial ischemia and best option would be cardiac catheterization to evaluate for coronary anatomy. cardiology discussed the risks, benefits, alternatives. Patient is agreeable. patient Will for transfer to [facility] today. further managment as per [place] [facility] team. Patient initially had CHELI, hyponatremia and hypokalemia: CHELI improved with hydration and holding hydrochlorothiazide. Hypokalemia improved with repletion . Hyponatremia is also improving in the range of 134. use amlodipine for htn until off hctz. Monitor BMP. Assessment and plan coordination time spent 50 minute. Time Attestation Discharge coordination time: Greater than 30 minutes Quality: Safe Use of Opioids Does Pt have an Active Cancer Diagnosis on the Problem List?: No Quality: Stroke Does the patient have a stroke diagnosis?: No Physical Exam Vital Signs: Vital Signs: Last Vital Signs Temp 98.0 F 02/04/23 11:05 Pulse 77 02/04/23 11:05 Resp 20 02/04/23 11:05 BP 175/95 H 02/04/23 11:05 Pulse Ox 100 02/04/23 11:05 O2 Del Method Room Air 02/04/23 11:05 FiO2 100 02/03/23 07:50 BMI result Body Mass Index 16.6 Constitutional : Awake, interactive, not in distress Cardiovascular : RRR, no JVP, no lower extremity edema Respiratory : good bilateral air entry, no crackles, wheezes or rhonchi Gastrointestinal: soft, lax, Normal bowel sounds, Non tender Skin : Warm, Dry, left big toe blackish tip, erythema in foot improving, no significant tenderness Neurological : Alert & oriented x3, No focal deficit DS: Data Data Completed and Pending Labs on day of discharge: Laboratory Results - last 24 hr 02/03/23 02/03/23 02/04/23 10:18 19:55 05:25 Hold Purple Top SEE NOTE Potassium 3.3 Creatinine 0.64 Estim Creat Clear Calc 75.2 Estimated GFR > 60 Stl C. cayetanensis PCR Cancelled Stool Rotavirus A PCR Cancelled Stl Adenov F 40/41 PCR Cancelled Stool Astrovirus (PCR) Cancelled Stool Campylobacter PCR Cancelled Stool Cryptosporidium PCR Cancelled Stl Sh Tox Pr E STEC PCR Cancelled Stool E coli O157 PCR Cancelled Stl Enterotoxigenic E PCR Cancelled Stool EPEC (PCR) Cancelled Stool EAEC (PCR) Cancelled Stl E. histolytica PCR Cancelled Stool Giardia Lamblia PCR Cancelled Stl P. shigelloides PCR Cancelled Stool Salmonella PCR Cancelled Stool Sapovirus (PCR) Cancelled Stl Shigella/EIEC PCR Cancelled St Y.enterocolitica PCR Cancelled Stool Vibrio (PCR) Cancelled Stl Vibrio cholerae PCR Cancelled Stl Norovirus GI/GII PCR Cancelled Random Vancomycin 19.4 02/04/23 08:24 Hold Purple Top Potassium Creatinine Estim Creat Clear Calc Estimated GFR Stl C. cayetanensis PCR Stool Rotavirus A PCR Stl Adenov F 40/41 PCR Stool Astrovirus (PCR) Stool Campylobacter PCR Stool Cryptosporidium PCR Stl Sh Tox Pr E STEC PCR Stool E coli O157 PCR Stl Enterotoxigenic E PCR Stool EPEC (PCR) Stool EAEC (PCR) Stl E. histolytica PCR Stool Giardia Lamblia PCR Stl P. shigelloides PCR Stool Salmonella PCR Stool Sapovirus (PCR) Stl Shigella/EIEC PCR St Y.enterocolitica PCR Stool Vibrio (PCR) Stl Vibrio cholerae PCR Stl Norovirus GI/GII PCR Random Vancomycin 10.6 L Preliminary micro results at discharge 01/31/23 17:53 Blood Culture - Preliminary Blood - Venous No growth after 48 hours. 01/31/23 17:38 Blood Culture - Preliminary Blood - Venous No growth after 48 hours. Imaging Chest x-ray: Radiologist's impression: ITS Impressions Toe X-Ray 01/31/23 16:03 IMPRESSION: Unremarkable examination. Echo: Conclusions: - Normal LV ejection fraction 60 65% with impaired relaxation filling pattern Findings Left Ventricle Normal left ventricular size, thickness, and systolic function. The visually estimated ejection fraction is between 60-65%. Spectral Doppler is indicative of an impaired relaxation filling pattern. E/E prime ratio is between 8 and 15 consistent with indeterminate filling pressures. possible basal inferolateral hypokinesis noted, although this could be due to off axis views as well Prior Study Comparison No significant change compared to prior study dated: 01/26/2023. Discharge Plan Discharge Anticipated Discharge Date/Time: 02/04/23 11:28 Patient Disposition: Xfer Acute Care Hospital Discharge Diagnosis: cellulitis vs foot ischemia Referrals: [facility] [Outside] - 1 Week Physician,Unknown J [Primary Care Provider] - 1 Week Discharge Medications: New vancomycin 750 mg recon soln 750 mg IV Q12H Qty: 1 0RF amlodipine 2.5 mg tablet 2.5 mg PO DAILY Qty: 1 0RF Continued clopidogrel [Plavix] 75 mg tablet 75 mg PO DAILY Qty: 90 1RF aspirin [Adult Aspirin Regimen] 81 mg tablet,delayed release (DR/EC) 81 mg PO DAILY atorvastatin [Lipitor] 80 mg tablet 80 mg PO DAILY Qty: 30 5RF Held hydrochlorothiazide 12.5 mg tablet 12.5 mg PO DAILY Qty: 60 0RF Hold Instructions: Resume on 02/06/23. Discharge Orders: Discharge Order (Routine); Ordered 02/04/23 Ordered By: Justo Cortes Diet: Advance to usual diet Activity on Discharge: As tolerated Stand Alone Forms: Patient Portal Discharge page Care Plan Goals: Patient initially admitted for left foot erythema and pain- possible cellulitis says in setting of peripheral vascular disease: Patient was started on IV vancomycin and vascular was consulted: Recommended for cardiology evaluation for risk stratification-for for vascular bypass surgery. Patient was seen by Cardiology: Patient has abnormal EKG, EF is 60-65% on echo:Abnormal EKG with wall motion abnormality in the patient with diffuse peripheral vascular disease is suggestive resting myocardial ischemia although she does not have any active myocardial symptoms. She is proposed to have major noncardiac surgery done under general anesthesia. cardiology recomended further evaluation for myocardial ischemia and best option would be cardiac catheterization to evaluate for coronary anatomy. cardiology discussed the risks, benefits, alternatives. Patient is agreeable. patient Will for transfer to [facility] today. further managment as per [place] [facility] team. Patient initially had CHELI, hyponatremia and hypokalemia: CHELI improved with hydration and holding hydrochlorothiazide. Hypokalemia improved with repletion . use amlodipine for htn until off hctz. Hyponatremia is also improving in the range of 134. Monitor BMP. Health Concerns: as above. Plan of Treatment: as above. Assessment: as above. Discharge Date/Time: 02/04/23 12:54
[2023-02-04] MEDS: ondansetron HCL 4 MG/2 ML VIAL IVPUSH (12:02)
--- NOTE | 2023-02-04 12:02 | MHC.CM.PN ---
Patient will be dc'd/transferred to [facility] today.
== END 2023-02-04 12:54 | disposition short-term general hospital (02) | DRG 603 ==
LOC: HO.ED 22:03 → HO.EDOVER 22:07 → HO.IMC 02-01 00:04
PROVIDERS: Physician Assistant Medical; Student in an Organized Health Care Education/Training Program; Admitting Provider Internal Medicine; Emergency Provider Emergency Medicine; Visit Provider Internal Medicine
DX: L03.116 Cellulitis of left lower limb (principal); E87.1 Hypo-osmolality and hyponatremia; N17.9 Acute kidney failure, unspecified; Z68.1 Body mass index [BMI] 19.9 or less, adult; E86.0 Dehydration; I70.245 Atherosclerosis of native arteries of left leg with ulceration of other part of foot; L97.529 Non-pressure chronic ulcer of other part of left foot with unspecified severity; R94.31 Abnormal electrocardiogram [ECG] [EKG]; E87.6 Hypokalemia; R63.6 Underweight; F17.210 Nicotine dependence, cigarettes, uncomplicated; Z71.6 Tobacco abuse counseling; Z20.822 Contact with and (suspected) exposure to COVID-19; Z79.02 Long term (current) use of antithrombotics/antiplatelets; Z79.82 Long term (current) use of aspirin; Z79.899 Other long term (current) drug therapy
CPT/HCPCS: 0241U; 36415; 73660; 80048; 80053; 80202; 82565; 83605; 83735; 84132; 84443; 84484; 85025; 85027; 85610; 85652; 85730; 86140; 87040; 87493; 87507; 93005; 93308; 99222; 99285; J1650; J2060; J2270; J2405; J3370; J3371

== ENCOUNTER 2023-01-31 21:54 | Outpatient (BNV) | payer OTHER, SELFPAY | END 2023-02-02 07:00 | PROVIDERS: Admitting Provider Internal Medicine; Emergency Provider Emergency Medicine; Visit Provider Internal Medicine Cardiovascular Disease | DX: R94.31 Abnormal electrocardiogram [ECG] [EKG] (principal) | CPT/HCPCS: 93308 ==

== ENCOUNTER → 2023-01-31 21:54 | Outpatient (BNV) | payer OTHER, SELFPAY | PROVIDERS: Admitting Provider Internal Medicine; Emergency Provider Emergency Medicine; Visit Provider Internal Medicine Cardiovascular Disease | DX: R94.31 Abnormal electrocardiogram [ECG] [EKG] (principal) | CPT/HCPCS: 99222; 99233 ==

== ENCOUNTER → 2023-01-31 21:54 | Outpatient (BNV) | payer OTHER, SELFPAY | PROVIDERS: Admitting Provider Internal Medicine; Emergency Provider Emergency Medicine; Visit Provider Surgery Vascular Surgery | DX: I73.9 Peripheral vascular disease, unspecified (principal) | CPT/HCPCS: 99222; 99232 ==

== ENCOUNTER → 2023-01-31 21:54 | Outpatient (BNV) | payer OTHER, SELFPAY | PROVIDERS: Admitting Provider Internal Medicine; Emergency Provider Emergency Medicine; Visit Provider Student in an Organized Health Care Education/Training Program | DX: R94.31 Abnormal electrocardiogram [ECG] [EKG] (principal); I73.9 Peripheral vascular disease, unspecified | CPT/HCPCS: 99232; 99233; 99239 ==

== ENCOUNTER → 2023-02-05 23:59 | Outpatient (BNV) | payer OTHER, SELFPAY | PROVIDERS: Visit Provider Internal Medicine Cardiovascular Disease | DX: I20.0 Unstable angina (principal) | CPT/HCPCS: 93458; 99152 ==